=== PATIENT | male | born 1960 | race Caucasian/White ===

== ENCOUNTER 2024-08-24 13:51 | Outpatient (REF) | payer MEDICARE, SELFPAY ==
[2024-08-24 16:32] LABS: Anion Gap 15 (12-20); Blood Urea Nitrogen 13 mg/dL (9-16); Calcium 9.8 mg/dL (8.4-10.2); Carbon Dioxide 25 mmol/L (22-29); Chloride 105 mmol/L (96-108); Cholesterol 179 mg/dL (<200); Estimated Glomerular Filt Rate > 60; Glucose Random 154 mg/dL (60-115); HDL Cholesterol 47 mg/dL (>40); LDL Cholesterol Calculated 82 mg/dL (<100); Potassium 4.9 mmol/L (3.3-5.1); Sodium 140 mmol/L (135-145); Triglycerides 253 mg/dL (<150)
--- OUTSIDE RECORDS SUMMARY | 2024-08-24 16:45 | XMS_ITS | Encounter Summary ---
Author Organization [employer] Address [address] [facility] 7 [place] [address] Care Team Providers Care Lead Security Officer Name Role Phone Davi Rivers MD Primary Care Provide r Reason for Visit * Reason Comments Diabetes Encounter Details Date Type Department Care Team (Late st Contact Info) Description 08/24/2024 1:15 PM EST Office Visit [facility] MED[facility]INE [address], [place] [phone] Davi Rivers MD [address], [place] [phone] IgG4 related disease (CMS/HCC) (Primary Dx); Type 2 diabetes mellitus without complication, without long-term current use of insulin (CMS/HCC); Colon cancer screening; S/P TKR (total knee replacement), left; Primary hypertension; Preventative health care Social History Tobacco Use Types Packs/Day Years Used Date Smoking Tobacco: Never Passive Smoke Exposure: Never Smokeless Tobacco: Never Alcohol Answer Date Recorded How often do you have a drink containing alcohol ? 2 05/23/2024 Average Number of Drinks Not on file 024 Frequency of Binge Drinking Not on file 04/29 Depression Answer Date Recorded Patient Health Questionnaire-9 Score 0 01/18/2024 Patient Health Questionnaire-9 Score 0 01/18/2024 Last PHQ-9: Questionnaire Data Not on file 0 01/18/2024 Housing Stability Answer Date Recorded What is your housing situation today? I have heber naylor 01/18/[address] you li ve. Do you have problems with any of the following? None of the above 01/18/2024 Food Insecurity Answer Date Recorded Within the past 12 months, y ou worried that your food would run out before you got money to buy more: Never True 01/18/2024 Within the past 12 months,th e food you bought just didn't last and you didn't have enough money to get more: Never True Transportation Answer Date Recorded In the past 12 months, has l ack of transportation kept you from medical appts, meetings, work or from getting things needed for daily living? No 01/18/2024 Utilities Answer Date Recorded In the past 12 months, has t he electric, gas, oil or water company threatened to shut off services in your home? No 01/18/2024 Depression Answer Date Recorded Patient Health Questionnaire-2 Score 0 01/18/2024 Internet Access Answer Date Recorded Internet Access Q1 Yes 02/28/2024 Internet Access Q2 Not on file 02/28/2024 Sex and Gender Information Value Date Recorded Sex Assigned at Male 04/27/2022 10:34 AM EDT Legal Sex Male 10:34 AM EDT Gender Identity Male 04/27/2022 10:34 AM EDT Sexual Orientation Straight 04/27/2022 10 :34 AM EDT documented as of this encounter Last Filed Vital Signs Vital Sign Reading Time Taken Comments Blood Pressure 138/91 08/24/2024 1:14 PM EST Pulse 88 08/24/2024 3:39 PM EST Temperature 36.1 ??C (96.9 ??F) 08/24/2024 1:14 PM ES T Respiratory Rate 20 08/24/2024 1:14 PM EST Oxygen Saturation 98% 08/24/2024 1:14 PM EST Inhaled Oxygen Concentration - - Weight 93.8 kg (206 lb 12.8 oz) 08/24/2024 1:14 PM EST Height 185.4 cm (6' 1 ) 08/24/2024 1:14 PM EST Body Mass Index 27.28 08/24/2024 1:14 PM EST documented in this encounter Progress Notes * Davi Navarro MD - 08/24/2024 1:15 PM EST SUBJECTIVE Roque Mata is a 64 y.o. male who presents for Diabetes. Diabetes He presents for his follow-up diabetic visit. He has type 2 diabetes mellitus. Pertinent negatives for hypoglycemia include no headaches. Pertinent negatives for diabetes include no chest pain. Review of Systems Constitutional: Negative for fever. HENT: Negative for sore throat. Respiratory: Negative for cough and shortness of breath. Cardiovascular: Negative for chest pain. Gastrointestinal: Negative for abdominal pain. Neurological: Negative for headaches. Allergies Allergen Reactions Lisinopril Cough OBJECTIVE Vitals: 08/24/24 1314 08/24/24 1539 BP: (!) 138/91 BP Location: Right arm Patient Position: Sitting BP Cuff Size: Adult Pulse: (!) 115 88 Resp: 20 Temp: 96.9 ??F (36.1 ??C) TempSrc: Temporal SpO2: 98% Weight: 206 lb 12.8 oz (93.8 kg) Height: 6' 1 (1.854 m) Physical Exam Vitals reviewed. Constitutional: Appearance: Normal appearance. HENT: Head: Normocephalic and atraumatic. Right Ear: External ear normal. Left Ear: External ear normal. Nose: Nose normal. Mouth/Throat: Mouth: Mucous membranes are moist. Eyes: Conjunctiva/sclera: Conjunctivae normal. Cardiovascular: Rate and Rhythm: Normal rate and regular rhythm. Pulmonary: Effort: Pulmonary effort is normal. Breath sounds: Normal breath sounds. Skin: General: Skin is warm. Neurological: Mental Status: He is alert. Mental status is at baseline. Assessment/Plan Problem List Items Addressed This Visit Type 2 diabetes mellitus without complication ([facility]) Pt here for a f/u regarding his DM he is on a regimen of Metformin 1000 mg 1 tabs po BID and Glipizide ER 10 mg in AM Hgb A1c 08/24/2024: 6.6 Pt is on an ARB Foot check risk of zero Microalbumin 07/15/2021 was 0.4 Pt reports compliance with Asa 81 mg po daily Pt not checking his blood sugar Plan: Continue current regimen Pt advised to: adhere to diabetic diet check your blood sugars regularly check your feet on a daily basis 3 months follow up Relevant Orders POCT Glucose (Completed) POCT HGB A1C (Completed) Albumin, Random Urine W/Creatinine 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 He initially presented with history of painless jaundice and cross-sectional imaging (CT, MRCP) that has been extensively evaluated with cytologic duct brushings at time of ERCP w/ plastic stent placement (08/30/2020), diagnostic laparoscopy with peritoneal washings (09/02/2020) and EUS-guided biopsy (unclear whether FNA vs FNB) (09/25/2020) with no evidence of malignancy. Given a large pancreas without defined mass and relative lack of features and negative malignancy evaluation, this appears suggestive of autoimmune pancreatitis. Given concomitant gallbladder and bile duct thickening, there may be associated cholangiopathy. According to Dr Banda His blood tests and imaging continue to improve on aza and allopurinol. She recommend to assess for active disease with MRCP MRCP done 07/2022 showed: IMPRESSION: 1. 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 2. 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 3. Fatty liver. 4. 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 Pt had a repeat MRCP 09/14/2022 that showed: IMPRESSION: 1. Interval decrease in masslike narrowing of a central right intrahepatic biliary radical within segment 8/5 with less upstream dilatation, likely improved in the setting of steroid therapy. These findings may represent an inflammatory process such IgG4-related cholangiopathy. Cholangiocarcinoma is unlikely given interval improvement in previously visualized biliary dilatation and masslike enhancement. However, to be sure that these findings are benign and resolve, a follow-up MRI/MRCP study in 4-6 weeks is recommended. 2. Fatty liver. 3. Similar mild prominence of the pancreatic tail without discrete mass or inflammatory changes, which may represent sequelae of prior autoimmune pancreatitis. Pt was subsequently referred to Rheumatology ( Dr Lopez ) by Dr Banda He was last seen 04/2023 He is concerned about?IgG4-RD (pancreas, bile ducts, gallbladder). 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 He is now s/p RTX 1,000 mg x2 infusions in January 2023. He is Off prednisone and biliary stent removed in March 2023. Last seen by [employer] Breanne PelaezO. 07/24/2024 He recommended: Monitoring labs every [address]. [address] Castañeda for co-management of IgG4-related EPI. Options for Creon co-pay assistance? -Monitor weight over the next 1-2 months. If continues to decline and IgG4-RD activity not suggestive of activity, will pursue further with imaging. Return to see him in 4-6 weeks. Colon cancer screening Pt tells me he had a colonoscopy at [facility], records requested S/P TKR (total knee replacement), left Pt with c/o moderate to severe left knee pain, knee gives way. Under the care of [facility] . S/P TKR 06/01/2024 Primary hypertension Pt here for a f/u for his HTN BP controlled He is on a regimen of: Irbesartan 150 mg po daily. Pt developed cough with Lisinopril. Most recent Scr 03/27/2024 Normal done at [facility] patient advised to adhere to a low sodium diet, encouraged about medication compliance, counseled about weight loss. f/u 4 months Preventative health care PSA 2018 Normal, ordered Colonoscopy: Hyperplastic Polyp 05/10/2012 Dr. Zurita ( file under Pulmonology consults). Repeat 05/15/2024 Dr Galeano Normal aside from internal hemorrhoids, 10 yr follow up recommended done at [facility] Relevant Orders PSA, Screen documented in this encounter Miscellaneous Notes * Assessment & Plan Note - Davi Navarro MD - 08/24/2024 1:40 PM EST Associated Problem(s): Preventative health care PSA 2018 Normal, ordered Colonoscopy: Hyperplastic Polyp 05/10/2012 Dr. Zurita ( file under Pulmonology consults). Repeat 05/15/2024 Dr Galeano Normal aside from internal hemorrhoids, 10 yr follow up recommended done at [facility] * Assessment & Plan Note - Davi Navarro MD - 08/24/2024 1:39 PM EST Associated Problem(s): Colon cancer screening Pt tells me he had a colonoscopy at [facility], records requested * Assessment & Plan Note - Davi Navarro MD - 08/24/2024 1:30 PM EST Associated Problem(s): Primary hypertension Pt here for a f/u for his HTN BP controlled He is on a regimen of: Irbesartan 150 mg po daily. Pt developed cough with Lisinopril. Most recent Scr 03/27/2024 Normal done at [facility] patient advised to adhere to a low sodium diet, encouraged about medication compliance, counseled about weight loss. f/u 4 months * Assessment & Plan Note - Davi Navarro MD - 08/24/2024 1:30 PM EST Associated Problem(s): Type 2 diabetes mellitus without complication (CMS/HCC) Pt here for a f/u regarding his DM he is on a regimen of Metformin 1000 mg 1 tabs po BID and Glipizide ER 10 mg in AM Hgb A1c 08/24/2024: 6.6 Pt is on an ARB Foot check risk of zero Microalbumin 07/15/2021 was 0.4 Pt reports compliance with Asa 81 mg po daily Pt not checking his blood sugar Plan: Continue current regimen Pt advised to: adhere to diabetic diet check your blood sugars regularly check your feet on a daily basis 3 months follow up * Assessment & Plan Note - Davi Navarro MD - 08/24/2024 1:29 PM EST Associated Problem(s): S/P TKR (total knee replacement), left Pt with c/o moderate to severe left knee pain, knee gives way. Under the care of [facility] . S/P TKR 06/01/2024 * Assessment & Plan Note - Davi Navarro MD - 08/24/2024 1:27 PM EST Associated Problem(s): IgG4 related disease (CMS/HCC) Under the care of Dr Banda Who has been following for pancreas mass w/ associated elevated IgG4. He initially presented with history of painless jaundice and cross-sectional imaging (CT, MRCP) that has been extensively evaluated with cytologic duct brushings at time of ERCP w/ plastic stent placement (08/30/2020), diagnostic laparoscopy with peritoneal washings (09/02/2020) and EUS-guided biopsy (unclear whether FNA vs FNB) (09/25/2020) with no evidence of malignancy. Given a large pancreas without defined mass and relative lack of features and negative malignancy evaluation, this appears suggestive of autoimmune pancreatitis. Given concomitant gallbladder and bile duct thickening, there may be associated cholangiopathy. According to Dr Banda His blood tests and imaging continue to improve on aza and allopurinol. She recommend to assess for active disease with MRCP MRCP done 07/2022 showed: IMPRESSION: 1. 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 2. 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 3. Fatty liver. 4. 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 Pt had a repeat MRCP 09/14/2022 that showed: IMPRESSION: 1. Interval decrease in masslike narrowing of a central right intrahepatic biliary radical within segment 8/5 with less upstream dilatation, likely improved in the setting of steroid therapy. These findings may represent an inflammatory process such IgG4-related cholangiopathy. Cholangiocarcinoma is unlikely given interval improvement in previously visualized biliary dilatation and masslike enhancement. However, to be sure that these findings are benign and resolve, a follow-up MRI/MRCP study in 4-6 weeks is recommended. 2. Fatty liver. 3. Similar mild prominence of the pancreatic tail without discrete mass or inflammatory changes, which may represent sequelae of prior autoimmune pancreatitis. Pt was subsequently referred to Rheumatology ( Dr Lopez ) by Dr Banda He was last seen 04/2023 He is concerned about?IgG4-RD (pancreas, bile ducts, gallbladder). 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 He is now s/p RTX 1,000 mg x2 infusions in January 2023. He is Off prednisone and biliary stent removed in March 2023. Last seen by [employer] Jonathan Pelaez.O. 07/24/2024 He recommended: Monitoring labs every [address] Castañeda for co-management of IgG4-related EPI. Options for Creon co-pay assistance? -Monitor weight over the next 1-2 months. If continues to decline and IgG4-RD activity not suggestive of activity, will pursue further with imaging. Return to see him in 4-6 weeks. documented in this encounter Plan of Treatment Scheduled Orders Name Type Priority Associated Diagnoses Orde r Schedule PSA, Screen Lab Routine Preventative health care Ordered: 08/24/2024 Albumin, Random Urine W/Creatinine Lab Routine Type 2 diabetes mellitus without complication, without long-term current use of insulin (CMS/HCC) Ordered: 08/24/2024 documented as of this encounter Procedures Procedure Name Priority Date/Time Associated Diagnosis Comments POCT GLYCATED HEMOGLOBIN, TOTAL Routine 08/24/2024 1:25 PM EST Type 2 diabetes mellitus without complication, without long-term current use of insulin (CMS/HCC) POCT GLUCOSE Routine 08/24/2024 1:18 PM EST Type 2 diabetes mellitus without complication, without long-term current use of insulin (CMS/HCC) HM COLONOSCOPY Routine 05/15/2024 documented in this encounter Results * (ABNORMAL) POCT HGB A1C (08/24/2024 1:25 PM EST) Hemoglobin A1C 6.6(A) 4.0 - 6.0 % QC Media Lot # [id number] Lot# Expiration Date Blood 08/24/2024 1:25 PM EST Result [facility] Davi Navarro MD POINT OF CARE TEST EN TER/EDIT ORDERABLES Final Result * POCT Glucose (08/24/2024 1:18 PM EST) Glucose Blood, POC 173 60 - 200 mg/dL QC Media Lot # [id number] Lot# Expiration Date Blood Capillary blood specimen / Unknown 08/24/2024 1:18 PM EST Result [facility] Davi Navarro MD POINT OF CARE TEST EN TER/EDIT ORDERABLES Final Result * Hm Colonoscopy (05/15/2024) Colonoscopy Normal Normal 05/15/2024 Result [facility] Rome Velarde MD HEALTH MAINTENANCE Final Result documented in this encounter Visit Diagnoses Diagnosis IgG4 related disease (CMS/HCC)- Primary Type 2 diabetes mellitus without complication, without long-term current use of insulin (CMS/HCC) Colon cancer screening Special screening for malignant neoplasms, colon S/P TKR (total knee replacement), left Primary hypertension Unspecified essential hypertension Preventative health care Routine general medical examination at a health care facility documented in this encounter Additional Health Concerns Assessment Noted Time PHQ-9 Depression Total Score: 0 01/18/20 24 1:09 PM EDT documented as of this encounter Care Teams Lead Security Officer Relationship Specialty Start Date End Date Davi Rivers MD [address] [place] [address] PCP - General Internal Medicine 03/29/18 documented as of this encounter
--- OUTSIDE RECORDS SUMMARY | 2024-08-24 16:45 | XMS_ITS | Encounter Summary ---
Author Organization [employer] Address [address] [facility] [address] [place] [address] Care Team Providers Care Supervisor Byproducts Name Role Phone Davi Rivers MD Primary Care Provide r Reason for Visit * Reason Comments Pre-visit Planning SDOH Screening negat andrew and Tobacco screening negative Encounter Details Date Type Department Care Team ([facility] st Contact Info) Description 08/11/2024 Patient Outreach [facility] MEDICINE [address] [place], [place] [phone] Davi Rivers MD [address] [place], [place] [phone] Pre-visit Planning (SDOH Screening negative and Tobacco screening negative) Social History Tobacco Use Types Packs/Day Years [...] AM EDT documented as of this encounter Progress Notes * Juhi Marsh - 08/11/2024 9:57 AM EST NEGIN Gillespie placed successful outbound call to patient for pre-visit planning. Patient name and confirmed. Patient confirms appt date and time, and has transportation arrangements. Biggest concern for appointment at this time is no concerns. Patient advised to bring to appointment a photo id and insurance card. Appropriate screenings completed in anticipation of appointment. documented in this encounter Plan of Treatment Not on file documented as of this encounter Visit Diagnoses Not on filedocumented in this encounter Additional Health Concerns Assessment Noted Time PHQ-9 Depression Total Score: 0 01/18/20 24 1:09 PM EDT documented as of this encounter Care Teams Supervisor Byproducts Relationship Specialty Start Date End Date aDvi Rivers MD [address] [place] [phone] PCP - General Internal Medicine 03/29/18 documented as of this encounter
--- OUTSIDE RECORDS SUMMARY | 2024-08-24 16:45 | XMS_ITS | Encounter Summary ---
Author Organization [employer] Address [address] [place] [address] 7 [place] [address] Care Team Providers Care Manpower Development Specialist Name Role Phone Davi Rivers MD Primary Care Provide r Reason for Visit * Reason Comments Med Refill Encounter Details Date Type Department Care Team (Late st Contact Info) Description 03/09/2023 Refill [facility] [address] [place], [place] [phone] Shameka Batres FNP Social History Tobacco Use Types Packs/Day Years Used Date Smoking Tobacco: Never Passive Smoke Exposure: Never Smokeless Tobacco: Never Depression Answer Date Recorded Patient Health Questionnaire-9 Score 2 12/01/2022 Depression Answer Date Recorded Patient Health Questionnaire-2 Score 0 12/01/2022 Sex and Gender Information Value Date Recorded Sex Assigned at Male 04/27/2022 10:34 AM EDT Legal Sex Male 10:34 AM EDT Gender Identity Male 04/27/2022 10:34 AM EDT Sexual Orientation Straight 04/27/2022 10 :34 AM EDT documented as of this encounter Plan of Treatment Not on file documented as of this encounter Visit Diagnoses Not on filedocumented in this encounter Additional Health Concerns Assessment Noted Time PHQ-9 Depression Total Score: 2 12/02/19 23 1:03 PM EDT documented as of this encounter Care Teams Manpower Development Specialist Relationship Specialty Start Date End Date Davi Rivers MD [address] [place] [id number] PCP - General Internal Medicine 03/29/18 documented as of this encounter
--- OUTSIDE RECORDS SUMMARY | 2024-08-24 16:45 | XMS_ITS | Encounter Summary ---
Author Organization [employer] Address [address] [facility] [address] [facility] [address] [place] [address] Care Team Providers Care Director Of Radio Services Name Role Phone Davi Rivers MD Primary Care Provide r Encounter Details Date Type Department Care Team ([facility] Contact Info) Description 08/24/2024 Telephone [facility] MEDICINE [address] [place], [place] [phone] Anne Ren, BA Social History Tobacco Use Types Packs/Day Years [...] AM EDT documented as of this encounter Miscellaneous Notes * Telephone Encounter - Anne Ren RN - 08/24/2024 2:50 PM EST Pt was present with pharmacist when team nurse received a phone call. Pharmacist reports pt does not appear well and requesting for team nurse to assess the situation. Pt sitting in wheel chair, appeared lethargic and reports dizziness. Pt states they ate breakfast and checked heir BS which was 180this morning. Pt states they had about three strokes in the past and went to the hospital last week. Pt reports when they were at the hospital they reported they did not find anything wrong. BS was checked at the clinic noted 201, HR: 66 O2: 96. custom car builder presented to ask pt more questions, pt speech incoherent with slight left facial droopiness. Dr. Marks was called and presented to the [facility] r/u possible signs of stroke before their scheduled daphne with their PCP at 1 pm. PCP reports pt is okay and pt was taking to green team to their appt. documented in this encounter Plan of Treatment Scheduled Orders Name Type Priority Associated Diagnoses Orde r Schedule POCT Glucose Point of Care Testing Routine Type 2 diabetes mellitus without complication, without long-term current use of insulin ([facility]) Ordered: 08/24/2024 documented as of this encounter Visit Diagnoses Diagnosis Type 2 diabetes mellitus without complication, without long-term current use of insulin ([facility]) documented in this encounter Additional Health Concerns Assessment Noted Time PHQ-9 Depression Total Score: 0 01/18/20 24 1:09 PM EDT documented as of this encounter Care Teams Director Of Radio Services Relationship Specialty Start Date End Date Davi Rivers MD [address] [place] [address] PCP - General Internal Medicine 03/29/18 documented as of this encounter
--- OUTSIDE RECORDS SUMMARY | 2024-08-24 16:45 | XMS_ITS | Clinical Summary ---
Author Organization [employer] Address [address] [facility] [address] [place] [address] Care Team Providers Care Office Nurse Name Role Phone Davi Rivers MD Primary Care Provide r Allergies Active Allergy Reactions Criticality Noted Date Comments Lisinopril Cough 03/29/2018 Medications allopurinol (Zyloprim) 100 MG tablet Take 100 mg by mouth in the morning. 3 Active fluticasone furoate (Arnuity Ellipta) 200 MCG/ACT inhaler INHALE 1 PUFF BY MOUTH ONCE DAILY. 30 each 3 4 Active albuterol (Ventolin HFA) 108 (90 Base) MCG/ACT inhaler INHALE 2 PUFFS BY MOUTH EVERY 4 TO 6 HOURS IF NEEDED 18 g 3 4 Active irbesartan (Avapro) 150 MG tabletIndications :Primary hypertension TAKE 1 TABLET BY MOUTH EVERY DAY 90 tablet 1 4 Active metFORMIN (Glucophage) 1000 MG tabletIndications :Hypertension associated with diabetes (CMS/HCC) (CMS/HCC),Type 2 diabetes mellitus with other specified complication, without long-term current use of insulin (CMS/HCC) TAKE 1 TABLET BY MOUTH WITH BREAKFAST AND EVENING MEAL 180 tablet 1 5 Active glipiZIDE XL (Glucotrol XL) 10 MG 24 hr tablet TAKE 1 TABLET BY MOUTH EVERY DAY WITH BREAKFAST 90 tablet 5 Active Active Problems Problem Noted Date Diagnosed Date S/P TKR (total knee replacement), left Assessment & Plan (08/24/2024 1:29 PM EST): Pt with c/o moderate to severe left knee pain, knee gives way. Under the care of [facility] . S/P TKR 06/01/2024 Assessment & Plan (05/23/2024 1:35 PM EST): Pt with c/o moderate to severe left knee pain, knee gives way. Under the care of [facility] . Scheduled for a TKR 06/01/2024 Assessment & Plan (01/18/2024 1:19 PM EDT): Pt with c/o moderate to severe left knee pain, knee gives way. Plan: refer to [facility] who evaluated him in the past. Colon cancer screening 06/17/2023 Assessment & Plan (08/24/2024 1:39 PM EST): Pt tells me he had a colonoscopy at [facility], records requested Assessment & Plan (09/21/2023 1:19 PM EDT): Scheduled to see GI 10/18/2023 Assessment & Plan (06/17/2023 2:26 PM EST): Will refer back overdue Preventative health care 12/01/2022 Assessment & Plan (08/24/2024 3:38 PM EST): 2018 Normal, ordered Colonoscopy: Hyperplastic Polyp 05/10/2012 Dr. Zurita ( file under Pulmonology consults). Repeat 05/15/2024 Dr Galeano Normal aside from internal hemorrhoids, 10 yr follow up recommended done at [facility] Assessment & Plan (05/23/2024 1:36 PM EST): 2018 Normal Colonoscopy: Hyperplastic Polyp 05/10/2012 Dr. Zurita ( file under Pulmonology consults). referred back last visit. Records requested Assessment & Plan (06/17/2023 2:25 PM EST): Colonoscopy: Hyperplastic Polyp 05/10/2012 Dr. Zurita ( file under Pulmonology consults). Will refer back Assessment & Plan (12/01/2022 1:05 PM EDT): Colonoscopy: Hyperplastic Polyp 05/10/2012 Dr. 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 Pt asymptomatic, no recent exposure Pt with diabetes and on intermitent prednisone that could weaken his immune system I recommended to repeat the Quantiferon test and obtain a , Chest x-ray. Pt told me he was told by Dr Lopez the Director Of Retail that he was going to do that and that I dod not have to do that. He also tells me Dr Lopez told him he thought this was a false positive. I discussed with patient that it was important that he follow through with this since if he is indeed positive and he will be on immunosuppressants he needs to be evaluated at the TB clinic. Pt is completely symptomatic no cough, no sob, lungs clear to auscultation bilaterally I see that he had an E-Consult by ID Specialist who recommended treatment. He already has an appointment with an ID specialist shceduled prior to his first RTX infusion Assessment & Plan (12/22/2022 3:54 PM EDT): Quantiferon gold done by Dr Banda positive ? Pt asymptomatic, no recent exposure Pt with diabetes and on intermitent prednisone that could weaken his immune system I recommended to repeat the Quantiferon test and obtain a , Chest x-ray. Pt told me he was told by Dr Lopez the Director Of Retail that he was going to do that and that I dod not have to do that. He also tells me Dr Lopez told him he thought this was a false positive. I discussed with patient that it was important that he follow through with this since if he is indeed positive and he will be on immunosuppressants he needs to be evaluated at the TB clinic. Pt is completely symptomatic no cough, no sob, lungs clear to auscultation bilaterally I see that he had an E-Consult by ID Specialist who recommended treatment. He already has an appointment with an ID specialist shceduled prior to his first RTX infusion Assessment & Plan (12/01/2022 1:27 PM EDT): Quantiferon gold done by Dr Banda positive ? Pt asymptomatic, no recent exposure Pt with diabetes and on intermitent prednisone that could weaken his immune system I recommended to repeat the Quantiferon test and obtain a , Chest x-ray. Pt told me he was told by Dr Lopez the Director Of Retail that he was going to do that and that I dod not have to do that. He also tells me Dr Lopez told him he thought this was a false positive. I discussed with patient that it was important that he follow through with this since if he is indeed positive and he will be on immunosuppressants he needs to be evaluated at the TB clinic. 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 in Dr Banda recommended to repeat in 2 months EGD was done 08/25/2020 Biopsies showed NO evidence of Nigel esophagus , GI recommended to repeat in 3 years Type 2 diabetes mellitus without complication Assessment & Plan (08/24/2024 1:30 PM EST): Pt here for a f/u regarding his [...] a daily basis 3 months follow up Assessment & Plan (05/23/2024 1:26 PM EST): Pt here for a f/u regarding his DM he is on a regimen of Metformin 1000 mg 1 tabs po BID and Glipizide ER 10 mg in AM Hgb A1c 05/23/2024: 6.5 Pt is on an ARB Foot check risk of zero Microalbumin 07/15/2021 was 0.4 Pt reports compliance with Asa 81 mg po daily Pt not checking his blood sugar Plan: Continue current regimen Pt advised to: adhere to diabetic diet check your blood sugars regularly check your feet on a daily basis 3 months follow up Assessment & Plan (01/18/2024 1:12 PM EDT): Pt here for a f/u regarding his DM he is on a regimen of Metformin 1000 mg 1 tabs po BID and Glipizide ER 10 mg in AM Hgb A1c 01/04/2024: 6.4 Pt is on an ARB Foot check risk of zero Microalbumin 07/15/2021 was 0.4 Pt reports compliance with Asa 81 mg po daily Pt not checking his blood sugar Plan: Continue current regimen Pt advised to: adhere to diabetic diet check your blood sugars regularly check your feet on a daily basis 3 months follow up Assessment & Plan (09/21/2023 1:16 PM EDT): Pt here for a f/u regarding his DM he is on a regimen of Metformin 1000 mg 1 tabs po BID and Glipizide ER 10 mg in AM Hgb A1c 09/21/2023: 6.6 7.6 down from 9.9 now that he is off the Prednisone Pt is on an ARB Foot check risk of zero Microalbumin 07/15/2021 was 0.4 Pt reports compliance with Asa 81 mg po daily Pt not checking his blood sugar Plan: Continue current regimen Pt advised to: adhere to diabetic diet check your blood sugars regularly check your feet on a daily basis 3 months follow up Assessment & Plan (06/17/2023 2:23 PM EST): Pt here for a f/u regarding his DM he is on a regimen of Metformin 1000 mg 1 tabs po BID and Glipizide ER 10 mg in AM Hgb A1c 06/17/2023: 7.6 down from 9.9 now that he is off the Prednisone Pt is on an ARB Foot check risk of zero Microalbumin 07/15/2021 was 0.4 Pt reports compliance with Asa 81 mg po daily Pt not checking his blood sugar Plan: Continue current regimen Pt advised to: adhere to diabetic diet check your blood sugars regularly check your feet on a daily basis 3 months follow up Assessment & Plan (12/22/2022 3:53 PM EDT): Pt here for a f/u regarding his DM he is on a regimen of Metformin 1000 mg 1 tabs po BID and Glipizide ER 10 mg po daily. Hgb A1c 12/01/2022: 9.9 Pt is on an ARB Foot check risk of zero Microalbumin 07/15/2021 was 0.4 Pt reports compliance with Asa 81 mg po daily Pt not checking his blood sugar A1c elevated likely due to Prednisone Fasting BG over 200 most days Plan: Increase Glipizide XL to 10 mg in Am and 5 mg in PM Pt advised to: adhere to diabetic diet check your blood sugars regularly check your feet on a daily basis 3 months follow up Assessment & Plan (12/01/2022 1:29 PM EDT): Pt here for a f/u regarding his DM he is on a regimen of Metformin 1000 mg 1 tabs po BID and Glipizide ER 10 mg po daily. 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 Last seen by Director Of Retail John Gabriel D.O. 07/24/2024 He recommended: Monitoring labs every [address]. [address] Castañeda for co-management of IgG4-related EPI. Options for Creon co-pay assistance? -Monitor weight over the next 1-2 months. If continues to decline and IgG4-RD activity not suggestive of activity, will pursue further with imaging. Return to see him in 4-6 weeks. Assessment & Plan (09/21/2023 1:06 PM EDT): Under the care of Dr Banda Who [...] removed in March 2023. Last seen by Director Of Retail John Gabriel D.O. 07/2023 He recommended: -MRCP scheduled for October. -Follow up with him and Dr. Banda-Dominique after imaging. -stated patient needs close monitoring to prevent additional biliary and pancreatic damage. Assessment & Plan (06/17/2023 2:15 PM EST): Under the care of Dr Banda Who [...] and biliary stent removed in March 2023. He recommended to Repeat LFTs. And Monitor closely. He Would favor repeat MRCP in early 2023 (4 months after RTX). And to Continue INH course and return to see him in 3 months. Assessment & Plan (12/22/2022 3:29 PM EDT): Under the care of Dr Banda Who [...] Lopez ) by Dr Banda He was seen 11/25/2022 He is concerned about?IgG4-RD (pancreas, bile ducts, gallbladder). 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 He mentioned he would benefit from rituximab treatment. He is pursuing RTX authorization. He recommended to reduce prednisone slightly from 20 to 15 mg daily given hyperglycemia and normalization of LFTs. Taper further after first RTX infusion. Pt is already scheduled for his first infusion on January 01 2023 Assessment & Plan (12/01/2022 1:03 PM EDT): Under the care of Dr Banda Who [...] Lopez ) by Dr Banda He was seen 11/25/2022 He is concerned about?IgG4-RD (pancreas, bile ducts, gallbladder). 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 He mentioned he would benefit from rituximab treatment. He is pursuing RTX authorization. He recommended to reduce prednisone slightly from 20 to 15 mg daily given hyperglycemia and normalization of LFTs. Taper further after first RTX infusion. Return to see him in 3 months. Chronic gout without tophus 11/01/2018 Primary hypertension 03/29/2018 Assessment & Plan (08/24/2024 1:30 PM EST): Pt here for a f/u for his HTN BP controlled He is on a regimen of: Irbesartan 150 mg po daily. Pt developed cough with Lisinopril. Most recent Scr 03/27/2024 Normal done [place] [facility] patient advised to adhere to a low sodium diet, encouraged about medication compliance, counseled about weight loss. f/u 4 months Assessment & Plan (05/23/2024 1:25 PM EST): Pt here for a f/u for his HTN BP controlled He is on a regimen of: Irbesartan 150 mg po daily. Pt developed cough with Lisinopril. Most recent Scr 03/27/2024 Normal done at [facility] [place] patient advised to adhere to a low sodium diet, encouraged about medication compliance, counseled about weight loss. f/u 4 months Assessment & Plan (01/18/2024 1:11 PM EDT): Pt here for a f/u for his HTN controlled He is on a regimen of: Irbesartan 150 mg po daily. Pt apparently developed cough with Lisinopril. Most recent BMP 09/2023 Normal done at [facility] [place] patient advised to adhere to a low sodium diet, encouraged about medication compliance, counseled about weight loss. f/u 4 months Assessment & Plan (09/21/2023 1:03 PM EDT): Pt here for a f/u for his HTN controlled He is on a regimen of: Irbesartan 150 mg po daily. Pt apparently developed cough with Lisinopril. Most recent BMP 02/01/2023 Normal patient advised to adhere to a low sodium diet, encouraged about medication compliance, counseled about weight loss. f/u 4 months Assessment & Plan (06/17/2023 2:16 PM EST): Pt here for a f/u for his HTN controlled He is on a regimen of: Irbesartan 150 mg po daily. Pt apparently developed cough with Lisinopril. Most recent BMP 02/01/2023 [facility] patient advised to adhere to a low sodium diet, encouraged about medication compliance, counseled about weight loss. f/u 4 months Assessment & Plan (12/22/2022 3:22 PM EDT): Pt here for a f/u for his HTN controlled He is on a regimen of: Irbesartan 150 mg po daily. Pt apparently developed cough with Lisinopril. Most recent BMP 07/15/2021 Normal, declines blood work states he will have it done by Rheumatology patient advised to adhere to a low sodium diet, encouraged about medication compliance, counseled about weight loss. f/u 4 months Assessment & Plan (12/01/2022 1:28 PM EDT): Pt here for a f/u for his HTN elevated He is on a regimen of: Irbesartan 150 mg po daily. Pt apparently developed cough with Lisinopril. Most recent BMP 07/15/2021 Normal, declines blood work states he will have it done by Rheumatology I have asked him to start checking his blood pressure at home once a day 2 week follow up if persistently elevated will need to consider adding Amlodipine 2.5 mg po daily patient advised to adhere to a low sodium diet, encouraged about medication compliance, counseled about weight loss. f/u 4 months Mild persistent asthma without complication 07/2017 Assessment & Plan (09/21/2023 1:20 PM EDT): [place] [facility] [place] Pt on Arnuity Ellipta and Pro-Air with good results Assessment & Plan (12/01/2022 1:04 PM EDT): [place] [facility] [place] Pt on Flovent and Pro-Air with good results Resolved Problems Problem Noted Date Diagnosed Date Resolved Date Impaired glucose tolerance 03/29/2018 0 12/01/2022 Encounters Date Type Department Care Team Description 08/24/2024 1:15 PM EST Office Visit [facility] [address] [place] [phone] Davi Rivers MD IgG4 related disease (CMS/HCC) (Primary Dx); Type 2 diabetes mellitus without complication, without long-term current use of insulin (CMS/HCC); Colon cancer screening; S/P TKR (total knee replacement), left; Primary hypertension; Preventative health care 08/24/2024 Telephone [facility] [address] [place] [address] Anne Ren RN 08/24/2024 Travel 08/11/2024 Patient Outreach [facility] [address] [place] [phone] Davi Rivers MD Pre-visit Planning (SDOH Screening negative and Tobacco screening negative) 08/09/2024 Telephone [facility] [address] [place] [phone] Davi Rivers MD Chart Prep 07/12/2024 Refill [facility] [address] [place] [phone] Patt Tamez MD 06/29/2024 Refill [facility] [address] [place] [phone] Davi Rivers MD Hypertension associated with diabetes (CMS/HCC) (CMS/HCC); Type 2 diabetes mellitus with other specified complication, without long-term current use of insulin (CMS/HCC) 06/13/2024 Telephone [facility] [address] [place] [phone] Nydia Mccann MA Feb Recall 05/30/2024 Telephone [facility] [address] [place] [phone] Davi Rivers MD from Last 3 Months Immunizations Name Administration Dates Next Due DTaP 07/20/2011 Tdap 01/18/2024 Zoster, live 07/31/2013 Social History Tobacco Use Types Packs/Day Years Used Date Smoking Tobacco: Never Passive Smoke Exposure: Never Smokeless Tobacco: Never Tobacco Cessation:Counseling Given: Not Answered Alcohol Answer Date Recorded How often do [...] Orientation Straight 04/27/2022 10 :34 AM EDT Last Filed Vital Signs Vital Sign Reading [...] Mass Index 27.28 08/24/2024 1:14 PM EST Plan of Treatment Health Maintenance Due Date Last Done Comments CT Colonography 1961 FIT DNA/Cologuard 1961 FIT 1961 FOBT 1961 HIV Screening 1961 Sigmoidoscopy 1961 Diabetes: Foot Exam 1971 Eye Exam 1971 Pneumococcal Vaccine: 50+ Years (1 of 2 - PCV) 1980 Zoster Vaccines (2 of 3) 09/25/2013 07/31/2013 RSV Patients and Patients Aged 60 years or older (1 - Risk 60-74 years 1-dose series) 2021 Diabetes: Urine Protein Screening 07/15/2022 07/15/2021, 04/17/2020 Lipid Panel 07/15/2022 08/24/2024, 06/28, 04/17/2020 COVID-19 Vaccine (2 - season) 2024 10/05/2020 Influenza Vaccine (#1) 2024 Depression Screening 01/17/2025 01/18/2024, 01/18/20 24 Diabetes: Hemoglobin A1C 02/21/2025 025, 05/23/2024, 01/18/2024, Additional history exists Alcohol/Substance Use Screening 05/23/2025 05/23/2024 SDOH Screening 08/11/2025 08/11/2024 Tobacco Screening 08/24/2025 08/24/2024 DTaP/Tdap/Td Vaccines (3 - Td or Tdap) 01/17/2034 01/18/2024, 07/20/2011 Colonoscopy 05/15/2034 05/15/2024 Colorectal Cancer Screening 05/15/2034 Hepatitis C Screening Completed 08/19/2020 HIB Vaccines Aged Out No longer eligi ble based on patient's age to complete this topic HPV Vaccines Aged Out No longer eligi ble based on patient's age to complete this topic Hepatitis A Vaccines Aged Out No long er eligible based on patient's age to complete this topic Hepatitis B Vaccines Aged Out No long er eligible based on patient's age to complete this topic IPV Vaccines Aged Out No longer eligi ble based on patient's age to complete this topic Meningococcal Vaccine Aged Out No juju adan eligible based on patient's age to complete this topic RSV under 20 months Aged Out No longe r eligible based on patient's age to complete this topic Rotavirus Vaccines Aged Out No longer eligible based on patient's age to complete this topic Procedures Procedure Name Priority Date/Time Associated Diagnosis Comments BASIC METABOLIC PANEL Routine 08/24/2024 1:54 PM EST Primary hypertension LIPID PANEL WITH REFLEX TO DIRECT LDL Routine 08/24/2024 1:54 PM EST Primary hypertension POCT GLYCATED HEMOGLOBIN, TOTAL Routine 08/24/2024 1:25 PM EST Type 2 diabetes mellitus without complication, without long-term current use of insulin (CMS/HCC) POCT GLUCOSE Routine 08/24/2024 1:18 PM EST Type 2 diabetes mellitus without complication, without long-term current use of insulin (CMS/HCC) HM COLONOSCOPY Routine 05/15/2024 ALBUMIN, RANDOM URINE W/CREATININE Routine 07/15/2021 1:31 PM EST ZZZ HISTORICAL HEPATITIS C AB W/REFL TO HCV RNA, QN, PCR Routine 08/19/2020 3:15 PM EST from Last 3 Months or Most Recently Relevant to Health Maintenance Results * (ABNORMAL) POCT HGB A1C (08/24/2024 1:25 PM EST) Hemoglobin A1C 6.6(A) 4.0 - 6.0 % QC Media Lot # [id number] Lot# Expiration Date Blood 08/24/2024 1:25 PM EST us Davi Navarro MD POINT OF CARE TEST EN TER/EDIT ORDERABLES Final Result * POCT Glucose (08/24/2024 1:18 PM EST) Glucose Blood, POC 173 60 - 200 mg/dL QC Media Lot # [id number] Lot# Expiration Date Blood Capillary blood specimen / Unknown 08/24/2024 1:18 PM EST us Davi Navarro MD POINT OF CARE TEST EN TER/EDIT ORDERABLES Final Result * Hm Colonoscopy (05/15/2024) Pathologist [facility] Colonoscopy Normal Normal 05/15/2024 Historical Provider HEALTH MAINTENANCE Final Result * ALBUMIN, RANDOM URINE W/CREATININE (07/15/2021 1:31 PM EST) Pathologist [facility] Microalbumin Urine 0.4 See Note: mg/dL [facility] Comment: Reference Range: ?? Reference Range Not established Microalb/Creat Ratio 2 <30 mcg/mg creat [facility] Comment: ?? The ADA defines abnormalities in albumin excretion as follows: ?? Albuminuria Category ?Result (mcg/mg creatinine) ?? Normal to Mildly increased ?? <30 Moderately increased ? 30-299 ?? Severely increased ? > OR = 300 ?? The ADA recommends that at least two of three specimens collected within a 3-6 month period be abnormal before considering a patient to be within a diagnostic category. Creatinine, Urine 169 20 - 320 mg/dL [facility] 07/15/2021 1:31 PM EST Davi Navarro MD LAB URINE ORDERABLES Final Result [facility] [address] * HEPATITIS C AB W/REFL TO HCV RNA, QN, PCR (08/19/2020 3:15 PM EST) Pathologist [facility] HEPATITIS C ANTIBODY NON-REACT RODRIGO NON-REACT RODRIGO [facility] INDEX 0.02 <1.00 [facility] Comment: ?? HCV antibody was non-reactive. There is no laboratory ?? evidence of HCV infection. ?? In most cases, no further action is required. However, if recent HCV exposure is suspected, a test for HCV RNA (test code 16627) is suggested. ?? For additional information please refer to http://education.Provender/faq/HZI88d5 (This link is being provided for informational/ educational purposes only.) ?? 08/19/2020 3:15 PM EST us Davi Navarro MD HISTORICAL/NON ORDERA BLE LABS Final Result [facility] [address] from Last 3 Months or Most Recently Relevant to Health Maintenance [place] [address] [place] [address] [place] [phone] Care Teams Office Nurse Relationship Specialty Start Date End Date Davi Rivers MD [address] [place] [phone] PCP - General Internal Medicine 03/29/18
--- OUTSIDE RECORDS SUMMARY | 2024-08-24 16:45 | XMS_ITS | Clinical Summary ---
Author Organization [facility] Address [address] [place] [address] Care Team Providers Care Brine Process Operator Name Role Phone Unavailable Primary Care Provider Unavailabl e Social History Tobacco Use Types Packs/Day Years Used Date Smoking Tobacco: Never Assessed Sex and Gender Information Value Date Recorded Sex Assigned at Not on file Gender Identity Not on file Sexual Orientation Not on file Plan of Treatment Health Maintenance Due Date Last Done Comments Hepatitis C Virus Screening 1961 HIV Screening 1974 DTaP/Tdap/Td Vaccines (1 - Tdap) 1980 Pneumococcal Vaccines 50+ (1 of 1 - PCV) 2011 Zoster (Shingles) Vaccine (1 of 2) 2011 COVID-19 Vaccine ( - 2023-2 5 season) 2024 RSV Vaccine 60 years and old er and Patients (1 - 1-dose 75+ series) 2036 Hepatitis B Vaccines Aged Out No long er eligible based on patient's age to complete this topic Pneumococcal Vaccine: Pediat ronald (0-5 Years) and At-Risk Patients (6 to 49 Years) Aged Out No longer eligible b ased on patient's age to complete this topic
--- OUTSIDE RECORDS SUMMARY | 2024-08-24 16:45 | XMS_ITS | Encounter Summary ---
Author Organization [employer] Address [address] [facility] 7 [place] [address] Care Team Providers Care Unpaid Intern Name Role Phone Davi Rivers MD Primary Care Provide r Reason for Visit * Reason Onset Date Comments Chart Prep 08/09/2024 Encounter Details Date Type Department Care Team ([facility] st Contact Info) Description 08/09/2024 Telephone [facility] MEDICINE [address] [place], [place] [phone] Davi Rivers MD [address] [place], [place] [phone] Chart Prep Social History Tobacco Use Types Packs/Day Years [...] the past 12 months, has t he [employer], gas, oil or water company threatened to [...] encounter Miscellaneous Notes * Telephone Encounter - Areli Leigh MA - 08/09/2024 6:08 PM EST Chart Prep Labs: not applicable Images: not applicable Vaccines due: Covid Due, PCV20 Due, Flu Due, RSV in Pharmacy Due, and Shingles in pharmacy Due Referrals: Not Applicable Screenings: Colonoscopy , Eye Exam, Foot Exam, and HIV screening Overdue care gaps: A1C, Glucose, and Oral Health Chart prep for upcoming appt with Dr.Esparza reddy. LB documented in this encounter Plan of Treatment Not on file documented as of this encounter Visit Diagnoses Not on filedocumented in this encounter Additional Health Concerns Assessment Noted Time PHQ-9 Depression Total Score: 0 01/18/20 24 1:09 PM EDT documented as of this encounter Care Teams Unpaid Intern Relationship Specialty Start Date End Date Davi Rivers MD [address] [place] [phone] PCP - General Internal Medicine 03/29/18 documented as of this encounter
--- OUTSIDE RECORDS SUMMARY | 2024-08-24 16:45 | XMS_ITS | Encounter Summary ---
Author Organization [employer] Address [address] [facility] [address] 7[address] [place] [address] Care Team Providers Care Extrusion Manager Name Role Phone Davi Rivers MD Primary Care Provide r Encounter Details Date Type Department Care Team (Latest Contact Info) Description 08/24/2024 Travel Social History Tobacco Use Types Packs/Day Years [...] documented as of this encounter Care Teams Extrusion Manager Relationship Specialty Start Date End Date Davi Rivers MD [address] [place] [address] PCP - General Internal Medicine 03/29/18 documented as of this encounter
--- OUTSIDE RECORDS SUMMARY | 2024-08-24 16:45 | XMS_ITS | Encounter Summary ---
Author Organization [facility] Address [address] [place] [address] Care Team Providers Care Floorperson Name Role Phone Unavailable Primary Care Provider Unavailabl e Encounter Details Date Type Department Care Team (Late st Contact Info) Description 04/30/2015 Scanned Document [address] [phone] Provider, Generic Social History Tobacco Use Types Packs/Day Years Used Date Smoking Tobacco: Never Assessed Sex and Gender Information Value Date Recorded Sex Assigned at Not on file Gender Identity Not on file Sexual Orientation Not on file documented as of this encounter Plan of Treatment Not on file documented as of this encounter Visit Diagnoses Not on filedocumented in this encounter
[2024-08-24 17:04] LABS: Reflex LDLD? No
[2024-08-24 17:08] LABS: Prostate Specific Antigen Scr 0.25 ng/mL (<0.05-4.0)
[2024-08-24 17:12] LABS: Creatinine Urine 365.64 mg/dL; Microalbum/Creatinine Ratio Ur 6.2 ug/mg cr (<30)
== END 2024-08-24 13:52 | disposition home or self-care (01) ==
LOC: HO.HHCL 13:51
PROVIDERS: Visit Provider Internal Medicine
DX: Z00.00 Encounter for general adult medical examination without abnormal findings (principal); E11.9 Type 2 diabetes mellitus without complications; I10 Essential (primary) hypertension; Z12.5 Encounter for screening for malignant neoplasm of prostate
CPT/HCPCS: 36415; 80048; 80061; 82043; 82570; 84153

== ENCOUNTER 2025-03-15 14:56 | Outpatient (REF) | payer MEDICARE, BC, SELFPAY ==
--- NOTE | ~2025-03-15 | XR_ITS ---
EXAMINATION: XR WRIST, RIGHT CLINICAL INFORMATION: bilateral wrist pain ritu decreased ROM COMPARISON: None available. TECHNIQUE: PA, lateral, and oblique views of the right wrist. FINDINGS: There is mild asymmetric narrowing of the radioscaphoid joint space. There is mild subchondral sclerosis. There is moderate severe narrowing of an subchondral sclerosis involving the capital lunate joint. There is moderate narrowing and marginal osteophyte involving first carpal metacarpal joint. There is a bony spur on the dorsum of the proximal wrist on the lateral view. No fractures are identified. XR/XR wrist RT min 3V IMPRESSION: Moderate degenerative disease. 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 Possible remote triquetral dorsal avulsion fracture. Electronically signed by: Erik Franz MD 03/15/2025 03:54 PM EDT
--- NOTE | ~2025-03-15 | XR_ITS ---
EXAMINATION: XR WRIST, LEFT CLINICAL INFORMATION: bilateral wrist pain COMPARISON: None available. TECHNIQUE: PA, lateral, and oblique views of the left wrist. FINDINGS: There is scalloping of the scaphoid fossa in the distal radius. There is narrowing and sclerosis of the capitate lunate articulation. There is mild sclerosis of the STT joint. There is narrowing and sclerosis of the first carpal metacarpal joint. There is focal calcific density between the ulnar styloid and triquetrum. There is faint chondrocalcinosis on the radial side of the STT joint. No acute fracture is identified. 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 Electronically signed by: Erik Franz MD 03/15/2025 03:51 PM EDT
--- OUTSIDE RECORDS SUMMARY | 2025-03-15 14:15 | XMS_ITS | Encounter Summary ---
Author Organization [employer] Address [address] [place] [address] 7t [place] [address] Care Team Providers Care Telephonic Rn Name Role Phone Davi Rivers MD Primary Care Provide r Encounter Details Date Type Department Care Team (Late st Contact Info) Description 03/15/2025 2:15 PM EDT Office Visit [facility] MEDICINE [address] [place], [place] [phone] Davi Rivers MD [address] [place] [address] Type 2 diabetes mellitus without complication, without long-term current use of insulin ([facility]) (Primary Dx); Primary hypertension; Bilateral wrist pain Social History Tobacco Use Types Packs/Day Years Used Date Smoking Tobacco: Never Passive Smoke Exposure: Never Smokeless Tobacco: Never Alcohol Answer Date Recorded How often do you have a drink containing alcohol ? 2 05/23/2024 Average Number of Drinks Not on file 024 Frequency of Binge Drinking Not on file 04/29 Depression Answer Date Recorded Patient Health Questionnaire-9 Score 0 03/15/2025 Patient Health Questionnaire-9 Score 0 03/15/2025 Last PHQ-9: Questionnaire Data Not on file 0 03/15/2025 Housing Stability Answer Date Recorded What is [...] Date Recorded Patient Health Questionnaire-2 Score 0 03/15/2025 Internet Access Answer Date Recorded Internet Access [...] Sign Reading Time Taken Comments Blood Pressure 150/80 03/15/2025 2:26 PM EDT Pulse 102 03/15/2025 2:26 PM EDT Temperature 36.7 C (98.1 F) 03/15/2025 2:26 PM EDT Respiratory Rate 20 03/15/2025 2:26 PM EDT Oxygen Saturation 98% 03/15/2025 2:26 PM EDT Inhaled Oxygen Concentration - - Weight 96.7 kg (213 lb 3.2 oz) 03/15/2025 2:26 P M EDT Height 185.9 cm (6' 1.2 ) 03/15/2025 2:26 PM EDT Body Mass Index 27.97 03/15/2025 2:26 PM EDT documented in this encounter Functional Status * Over the past 2 weeks, how often have you been bothered by any of the following problems? Question Answer Date of Assessment Author Patient Health Questionnaire -2 Score 0 03/15/2025 2:27 PM EDT Jillian Medina MA * Little interest or pleasure in doing things Answer Date of Assessment Author Not at all 03/15/2025 2:27 PM EDT Jillian Medina MA * Feeling down, depressed, or hopeless Answer Date of Assessment Author Not at all 03/15/2025 2:27 PM EDT Jillian Medina MA * Trouble falling or staying asleep, or sleeping too much Answer Date of Assessment Author Not at all 03/15/2025 2:27 PM EDT Jillian Medina MA * Feeling tired or having little energy Answer Date of Assessment Author Not at all 03/15/2025 2:27 PM EDT Jillian Medina MA * Poor appetite or overeating Answer Date of Assessment Author Not at all 03/15/2025 2:27 PM EDT Jillian Medina MA * Feeling bad about yourself - or that you are a failure or have let yourself or your family down Answer Date of Assessment Author Not at all 03/15/2025 2:27 PM EDT Jillian Medina MA * Trouble concentrating on things, such as reading the newspaper or watching television Answer Date of Assessment Author Not at all 03/15/2025 2:27 PM EDT Jillian Medina MA * Moving or speaking so slowly that other people could have noticed? Or the opposite - being so fidgety or restless that you have been moving around a lot more than usual. Answer Date of Assessment Author Not at all 03/15/2025 2:27 PM EDT Jillian Medina MA * Thoughts that you would be better off or hurting yourself in some way Answer Date of Assessment Author Not at all 03/15/2025 2:27 PM EDT Jillian Medina MA * Patient Health Questionnaire-9 Score Answer Date of Assessment Author 0 03/15/2025 2:27 PM EDT Jillian Medina MA documented as of this encounter Progress Notes * Davi Navarro MD - 03/15/2025 2:15 PM EDT SUBJECTIVE Roque Mata is a 64 y.o. male who presents for No chief complaint on file.. 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 He has type 2 diabetes mellitus. Pertinent negatives for hypoglycemia include no headaches. Pertinent negatives for diabetes include no chest pain. Review of Systems Constitutional: Negative for fever. HENT: Negative for sore throat. Respiratory: Negative for cough and shortness of breath. Cardiovascular: Negative for chest pain. Gastrointestinal: Negative for abdominal pain. Neurological: Negative for headaches. Allergies[1] OBJECTIVE Vitals: 03/15/25 1426 BP: (!) 150/80 BP Location: Left arm Patient Position: Sitting BP Cuff Size: Adult Pulse: 102 Resp: 20 Temp: 98.1 ??F (36.7 ??C) TempSrc: Oral SpO2: 98% Weight: 213 lb 3.2 oz (96.7 kg) Height: 6' 1.2 (1.859 m) Physical Exam Vitals reviewed. Constitutional: Appearance: Normal appearance. HENT: Head: Normocephalic and atraumatic. Right Ear: External ear normal. Left Ear: External ear normal. Nose: Nose normal. Mouth/Throat: Mouth: Mucous membranes are moist. Eyes: Conjunctiva/sclera: Conjunctivae normal. Cardiovascular: Rate and Rhythm: Normal rate and regular rhythm. Pulmonary: Effort: Pulmonary effort is normal. Breath sounds: Normal breath sounds. Musculoskeletal: Right wrist: Bony tenderness present. Decreased range of motion. Left wrist: Bony tenderness present. Decreased range of motion. Skin: General: Skin is warm. Neurological: Mental Status: He is alert. Mental status is at baseline. Assessment/Plan Problem List Items Addressed This Visit Type 2 diabetes mellitus without complication (CMS/HCC) - Primary Pt here for a f/u regarding his DM he is on a regimen of Metformin 1000 mg 1 tabs po BID and Glipizide ER 10 mg in AM Hgb A1c 03/15/2025: 7 from 6 Pt is on an ARB Foot check risk of zero Microalbumin 08/24/2024 was 23 Pt reports compliance with Asa 81 mg po daily Pt not checking his blood sugar Plan: Continue current regimen for now, asked patient to check BG at home (he is not doing it ), pending those results will decide if we need to adjust his regimen Pt advised to: adhere to diabetic diet check your blood sugars regularly check your feet on a daily basis 3 months follow up Relevant Orders POCT Glucose (Completed) POCT Hgb A1c (Completed) Primary hypertension Pt here for a f/u for his HTN BP elevated He is on a regimen of: Irbesartan 150 mg po daily. Pt developed cough with Lisinopril. Most recent Scr 11/21/2024 Normal done at [facility] patient advised to adhere to a low sodium diet, encouraged about medication compliance, counseled about weight loss. f/u 4 months with me 2 weeks with RN for BP check Bilateral wrist pain Bilateral wrist pain On exam decreased ROM Suspect OA Plan: x-rays both wrists Relevant Orders XR Hand 3+ Views Right XR Wrist 3+ Views Left This note was drafted using Ambient (AI) technology. The patient/patient's guardian has been informed and has consented to the use of this technology: Yes No future appointments. [1] Allergies Allergen Reactions Lisinopril Cough documented in this encounter Miscellaneous Notes * Assessment & Plan Note - Davi Navarro MD - 03/15/2025 2:47 PM EDT Associated Problem(s): Bilateral wrist pain Bilateral wrist pain On exam decreased ROM Suspect OA Plan: x-rays both wrists * Assessment & Plan Note - Davi Navarro MD - 03/15/2025 2:36 PM EDT Associated Problem(s): Primary hypertension Pt here for a f/u for his HTN BP elevated He is on a regimen of: Irbesartan 150 mg po daily. Pt developed cough with Lisinopril. Most recent Scr 11/21/2024 Normal done at [facility] patient advised to adhere to a low sodium diet, encouraged about medication compliance, counseled about weight loss. f/u 4 months with me 2 weeks with RN for BP check * Assessment & Plan Note - Davi Navarro MD - 03/15/2025 2:36 PM EDT Associated Problem(s): Type 2 diabetes mellitus without complication (CMS/HCC) Pt here for a f/u regarding his DM he is on a regimen of Metformin 1000 mg 1 tabs po BID and Glipizide ER 10 mg in AM Hgb A1c 03/15/2025: 7 from 6 Pt is on an ARB Foot check risk of zero Microalbumin 08/24/2024 was 23 Pt reports compliance with Asa 81 mg po daily Pt not checking his blood sugar Plan: Continue current regimen for now, asked patient to check BG at home (he is not doing it ), pending those results will decide if we need to adjust his regimen Pt advised to: adhere to diabetic diet check your blood sugars regularly check your feet on a daily basis 3 months follow up documented in this encounter Plan of Treatment Not on file documented as of this encounter Procedures Procedure Name Priority Date/Time Associated Diagnosis Comments XR WRIST 3+ VIEWS LEFT Routine 03/15/2025 3:40 PM EDT Bilateral wrist pain XR WRIST 3+ VIEWS RIGHT Routine 03/15/2025 3:27 PM EDT POCT GLYCATED HEMOGLOBIN, TOTAL Routine 03/15/2025 2:50 PM EDT Type 2 diabetes mellitus without complication, without long-term current use of insulin ([facility]) POCT GLUCOSE Routine 03/15/2025 2:25 PM EDT Type 2 diabetes mellitus without complication, without long-term current use of insulin ([facility]) documented in this encounter Results * XR Wrist 3+ Views Left (03/15/2025 3:40 PM EDT) Anatomical Region Laterality Modality Upper Extremities, Wrist Left Radiogr aphic Imaging 03/15/2025 3:40 PM EDT Narrative 03/15/2025 3:54 PM EDT [address] [address] XRay Report Signed Patient: Roque Mata MR#: [id number] : 1960 Acct:[id number] Age/Sex: 64 / M ADM Date: 03/15/25 Loc: HO.HHCX Attending Dr: Davi Rojas MD Ordering Physician: Davi Rojas MD Date of Service: 03/15/25 Procedure(s): XR wrist LT min 3V Accession Number(s): [id number] cc: Davi Rojas MD Reason for Exam: bilateral wrist pain EXAMINATION: XR WRIST, LEFT CLINICAL INFORMATION: bilateral wrist pain COMPARISON: None available. TECHNIQUE: PA, lateral, and oblique views of the left wrist. FINDINGS: There is scalloping of the scaphoid fossa in the distal radius. There is narrowing and sclerosis of the capitate lunate articulation. There is mild sclerosis of the STT joint. There is narrowing and sclerosis of the first carpal metacarpal joint. There is focal calcific density between the ulnar styloid and triquetrum. There is faint chondrocalcinosis on the radial side of the STT joint. No acute fracture is identified. 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 Electronically signed by: Erik Franz MD 03/15/2025 03:51 PM EDT RP Dictated By: Erik Franz MD Signed By: <Electronically signed by Erik Franz MD in OV> 03/15/25 1551 DD/ 1540 TD/TT: 03/15/25 154 Advertising Traffic Manager: Procedure Note Donotmargaritainterpreter, Image - 03/15/[address] [address] XRay Report Signed Patient: Roque Mata LMR#: [id number] : 1960cct:[id number] Age/Sex: 64 / MADM Date: 03/15/25 Loc: HO.HHCX Attending Dr: Davi Rojas MD Ordering Physician: Davi Rojas MD Date of Service: 03/15/25 Procedure(s): XR wrist LT min 3V Accession Number(s): [id number] cc: Davi Rojas MD Reason for Exam: bilateral wrist pain EXAMINATION: XR WRIST, LEFT CLINICAL INFORMATION: bilateral wrist pain COMPARISON: None available. TECHNIQUE: PA, lateral, and oblique views of the left wrist. FINDINGS: There is scalloping of the scaphoid fossa in the distal radius. There is narrowing and sclerosis of the capitate lunate articulation. There is mild sclerosis of the STT joint. There is narrowing and sclerosis of the first carpal metacarpal joint. There is focal calcific density between the ulnar styloid and triquetrum. There is faint chondrocalcinosis on the radial side of the STT joint. No acute fracture is identified. 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 Electronically signed by: Erik Franz MD 03/15/2025 03:51 PM EDT RP Dictated By: Erik Franz MD Signed By: <Electronically signed by Erik Franz MD in OV> 03/15/25 1551 DD/ 1540 TD/TT: 03/15/25 1543 Advertising Traffic Manager: us Davi Navarro MD IMG XR PROCEDURES Fin al Result * XR Wrist 3+ Views Right (03/15/2025 3:27 PM EDT) Anatomical Region Laterality Modality Upper Extremities, Wrist Right Radiogr aphic Imaging 03/15/2025 3:27 PM EDT Narrative 03/15/2025 3:57 PM EDT [facility] [address] [place] [address] XRay Report Signed Patient: Roque Mata MR#: [id number] : 1960 Acct:[id number] Age/Sex: 64 / M ADM Date: 03/15/25 Loc: HO.HHCX Attending Dr: Davi Rojas MD Ordering Physician: Davi Rojas MD Date of Service: 03/15/25 Procedure(s): XR wrist RT min 3V Accession Number(s): [id number] cc: Davi Rojas MD Reason for Exam: bilateral wrist pain ritu decreased ROM EXAMINATION: XR WRIST, RIGHT CLINICAL INFORMATION: bilateral wrist pain ritu decreased ROM COMPARISON: None available. TECHNIQUE: PA, lateral, and oblique views of the right wrist. FINDINGS: There is mild asymmetric narrowing of the radioscaphoid joint space. There is mild subchondral sclerosis. There is moderate severe narrowing of an subchondral sclerosis involving the capital lunate joint. There is moderate narrowing and marginal osteophyte involving first carpal metacarpal joint. There is a bony spur on the dorsum of the proximal wrist on the lateral view. No fractures are identified. XR/XR wrist RT min 3V IMPRESSION: Moderate degenerative disease. 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 Possible remote triquetral dorsal avulsion fracture. Electronically signed by: Erik Franz MD 03/15/2025 03:54 PM EDT Dictated By: Erik Franz MD Signed By: <Electronically signed by Erik Franz MD in OV> 03/15/25 1554 DD/ 1527 TD/TT: 03/15/25 1543 Advertising Traffic Manager: Procedure Note Donotuseinterpreter, Image - 03/15/[address] [address] XRay Report Signed Patient: Roque Mata LMR#: [id number] : 1960cct:[id number] Age/Sex: 64 / MADM Date: 03/15/25 Loc: HO.HHCX Attending Dr: Davi Rojas MD Ordering Physician: Davi Rojas MD Date of Service: 03/15/25 Procedure(s): XR wrist RT min 3V Accession Number(s): [id number] cc: Davi Rojas MD Reason for Exam: bilateral wrist pain ritu decreased ROM EXAMINATION: XR WRIST, RIGHT CLINICAL INFORMATION: bilateral wrist pain ritu decreased ROM COMPARISON: None available. TECHNIQUE: PA, lateral, and oblique views of the right wrist. FINDINGS: There is mild asymmetric narrowing of the radioscaphoid joint space. There is mild subchondral sclerosis. There is moderate severe narrowing of an subchondral sclerosis involving the capital lunate joint. There is moderate narrowing and marginal osteophyte involving first carpal metacarpal joint. There is a bony spur on the dorsum of the proximal wrist on the lateral view. No fractures are identified. XR/XR wrist RT min 3V IMPRESSION: Moderate degenerative disease. 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 Possible remote triquetral dorsal avulsion fracture. Electronically signed by: Erik Franz MD 03/15/2025 03:54 PM EDT Dictated By: Erik Franz MD Signed By: <Electronically signed by Erik Franz MD in OV> 03/15/25 1554 DD/ 1527 TD/TT: 03/15/25 1543 Advertising Traffic Manager: Davi Navarro MD IMG XR PROCEDURES Fin al Result * (ABNORMAL) POCT Hgb A1c (03/15/2025 2:50 PM EDT) Hemoglobin A1C 7.0(A) 4.0 - 5.7 % QC Media Lot # [id number] Lot# Expiration Date , Blood 03/15/2025 2:50 PM EDT Davi Navarro MD POINT OF CARE TEST EN TER/EDIT ORDERABLES Final Result * POCT Glucose (03/15/2025 2:25 PM EDT) Glucose Blood, POC 190 60 - 200 mg/dL QC Media Lot # [id number] Lot# Expiration Date 466,090 Blood Capillary blood specimen / Unknown 03/15/2025 2:25 PM EDT Davi Navarro MD POINT OF CARE TEST EN TER/EDIT ORDERABLES Final Result documented in this encounter Visit Diagnoses Diagnosis Type 2 diabetes mellitus without complication, without long-term current use of insulin ([facility])- Primary Primary hypertension Unspecified essential hypertension Bilateral wrist pain documented in this encounter Additional Health Concerns Assessment Noted Time PHQ-9 Depression Total Score: 0 03/15/20 25 2:27 PM EDT documented as of this encounter Care Teams Telephonic Rn Relationship Specialty Start Date End Date Davi Rivers MD [address] [place] [address] PCP - General Internal Medicine 03/29/18 documented as of this encounter
--- OUTSIDE RECORDS SUMMARY | 2025-03-15 16:36 | XMS_ITS | Encounter Summary ---
Author Organization [facility] Address [facility] [employer] [facility] [address] [place] [phone] Phone Care Team Providers Care Document Management Specialist Name Role Phone Davi Rojas MD Primary Care Provide r Unknown, Unknown Unavailable Unavailable Cecilia De La Torre RN Unavailable SOLO [email or web address] Encounter Details Date Type Department Care Team (Late Contact Info) Description 05/02/2021 Transcribe Orders [facility] [address] [place] [address] Lisbeth Garces [address] [place] [phone] [email or web address] Social History Tobacco Use Types Packs/Day Years Used Date Smoking Tobacco: Never Smokeless Tobacco: Never Alcohol Use Standard Drinks/Week Comments Yes 0 (1 standard drink = 0.6 oz pur e alcohol) 3-6 drinks per weekend Sex and Gender Information Value Date Recorded Sex Assigned at Male 10/11/2020 6:47 PM EDT Legal Sex Male 6:35 PM EDT Gender Identity Male 10/11/2020 6:47 PM EDT Sexual Orientation Straight 10/11/2020 6: 47 PM EDT documented as of this encounter Plan of Treatment Upcoming Encounters Date Type Department Care Team (Late Contact Info) Description 03/19/2025 10:40 AM EDT Office Visit [facility] Rhe[facility]ology [address], [address] [place] [address] John Gabriel DO [address] [place] [address] LUIS [email or web address] 03/20/2025 9:15 AM EDT Telemedicine [facility] [address] [facility], 5th [place] [address] Trice Castañeda MD [address] [address] [email or web address] documented as of this encounter Visit Diagnoses Not on filedocumented in this encounter Care Teams Document Management Specialist Relationship Specialty Start Date End Date Davi Rojas MD [address] [facility] [address] [place] [phone] [email or web address] PCP - General Internal Medicine 10/04/20 Unknown, Nano, 10/04/20 Cecilia De La Torre, RN [address] [place] [phone] [email or web address] Primary Infusion Nurse 02/01/23 documented as of this encounter Additional Source Comments The information contained in this document represents components of the legal health record. It is not the complete legal health record[facility]
--- OUTSIDE RECORDS SUMMARY | 2025-03-15 16:36 | XMS_ITS | Encounter Summary ---
Author Organization [facility] Address [facility] [address] [place] [address] Phone Care Team Providers Care Skin Care Instructor Name Role Phone Davi Rojas MD Primary Care Provide r Unknown, Unknown Unavailable Unavailable Cecilia De La Torre RN Unavailable SOLO @[email or web address] Encounter Details Date Type Department Care Team (Late st Contact Info) Description 02/12/2023 Procedure Pass [facility] Endoscopy Department [address] [place] [id number] Social History Tobacco Use Types Packs/Day Years Used Date Smoking Tobacco: Never Smokeless Tobacco: Never Alcohol Use Standard Drinks/Week Comments Yes 0 (1 standard drink = 0.6 oz pur e alcohol) 1 drink per weekend Education Answer Date Recorded Are you interested in more education? Not on adrienne e 10/24/2022 Are you concerned about learning? Not on file 10/24/2022 No 10/24/2022 No 10/24/2022 Digital Access Answer Date Recorded No 11/19/2022 No 11/19/2022 Reliable internet access at home? Not on file 11/19/2022 Device with a working camera? Not on file Sex and Gender Information Value Date Recorded Sex Assigned at Male 10/11/2020 6:47 PM EDT Legal Sex Male 6:35 PM EDT Gender Identity Male 10/11/2020 6:47 PM EDT Sexual Orientation Straight 10/11/2020 6: 47 PM EDT documented as of this encounter Plan of Treatment Upcoming Encounters Date Type Department Care Team (Late st Contact Info) Description 03/19/2025 10:40 AM EDT Office Visit [facility] Rheumatology [address], [address] [place] [address] oJhn Gabriel DO 55 [place] [address] LUIS [email or web address] 03/20/2025 9:15 AM EDT Telemedicine [facility] [address] [facility], 5th [place] [address] Trice Castañeda MD [address] [address] [email or web address] documented as of this encounter Visit Diagnoses Not on filedocumented in this encounter Care Teams Skin Care Instructor Relationship Specialty Start Date End Date Davi Rojas MD [address] [place] [phone] [email or web address] PCP - General Internal Medicine 10/04/20 Unknown, Nano, 10/04/20 Cecilia De La Torre, RN [address] [place] [phone] SOLO@[email or web address] daisy Primary Infusion Nurse 02/01/23 documented as of this encounter Additional Source Comments The information contained in this document represents components of the legal health record. It is not the complete legal health record.[facility]
--- OUTSIDE RECORDS SUMMARY | 2025-03-15 16:36 | XMS_ITS | Encounter Summary ---
Author Organization [facility] Address [facility] [address] [place] [address] Phone Care Team Providers Care Group Leader Semiconductor Processing Name Role Phone Davi Rojas MD Primary Care Provide r Unknown, Unknown Unavailable Unavailable Cecilia De La Torre RN Unavailable SOLO @[email or web address] Encounter Details Date Type Department Care Team (Late st Contact Info) Description 01/31/2021 Procedure Pass [address] [address] Social History Tobacco Use Types Packs/Day Years [...] Description 03/19/2025 10:40 AM EDT Office Visit [facility] Rhe[facility]ology [address], [address] [place] [address] John Gabriel DO 55 [place] [address] LUIS MANUEL@[email or web address] 03/20/2025 9:15 AM EDT Telemedicine [facility] 55 [facility], 5th [place] [address] Trice Castañeda MD [address] [address] MASHA@[email or web address] documented as of this encounter Visit Diagnoses Not on filedocumented in this encounter Care Teams Group Leader Semiconductor Processing Relationship Specialty Start Date End Date Davi Rojas MD [address] [place] [address] [address] [place] [phone] [email or web address] PCP - General Internal Medicine 10/04/20 Unknown, Unknown, 10/04/20 Cecilia De La Torre, RN [address] [place] [phone] [email or web address] daisy Primary Infusion Nurse 02/01/23 documented as of this encounter Additional Source Comments The information contained in this document represents components of the legal health record. It is not the complete legal health record.[facility]
--- OUTSIDE RECORDS SUMMARY | 2025-03-15 16:36 | XMS_ITS | Encounter Summary ---
Author Organization [facility] Address [address] [place] [address] Care Team Providers Care Hammer Shop Supervisor Name Role Phone Unavailable Primary Care Provider Unavailabl e Encounter Details Date Type Department Care Team (Late st Contact Info) Description 04/30/2015 Scanned Document [address] [phone] Provider, Generic Social History Tobacco Use Types Packs/Day Years Used Date Smoking Tobacco: Never Assessed Sex and Gender Information Value Date Recorded Sex Assigned at Not on file Legal Sex Male 3:27 PM EDT Gender Identity Not on file Sexual Orientation Not on file documented as of this encounter Plan of Treatment Not on file documented as of this encounter Visit Diagnoses Not on filedocumented in this encounter
--- OUTSIDE RECORDS SUMMARY | 2025-03-15 16:36 | XMS_ITS | Encounter Summary ---
Author Organization [facility] Address [facility] [address] [place] [address] Phone Care Team Providers Care Motorboat Mechanic Name Role Phone Davi Rojas MD Primary Care Provide r Unknown, Unknown Unavailable Unavailable Cecilia De La Torre RN Unavailable SOLO @[email or web address] Encounter Details Date Type Department Care Team (Late st Contact Info) Description 06/10/2021 Procedure Pass [address] [address] Social History Tobacco Use Types Packs/Day Years Used Date Smoking Tobacco: Never Smokeless Tobacco: Never Alcohol Use Standard Drinks/Week Comments Yes 0 (1 standard drink = 0.6 oz pur e alcohol) 1 drink per weekend Sex and Gender Information Value [...] Description 03/19/2025 10:40 AM EDT Office Visit [facility] Rheumatology [address], [address] [place] [address] John Gabriel DO 55 [place] [address] LUIS MANUEL@[email or web address] 03/20/2025 9:15 AM EDT Telemedicine [facility] 55 [facility], 5th [place] [address] Trice Castañeda MD 55 [facility] 4 [place] [address] MASHA@[email or web address] documented as of this encounter Visit Diagnoses Not on filedocumented in this encounter Care Teams Motorboat Mechanic Relationship Specialty Start Date End Date Davi Rojas MD [address] [place] [address] [place] [phone] [email or web address] PCP - General Internal Medicine 10/04/20 Unknown, Unknown, 10/04/20 Cecilia De La Torre, RN [address] [place] [phone] SOLO@[email or web address]. [email or web address] Primary Infusion Nurse 02/01/23 documented as of this encounter Additional Source Comments The information contained in this document represents components of the legal health record. It is not the complete legal health record.[facility]
--- OUTSIDE RECORDS SUMMARY | 2025-03-15 16:36 | XMS_ITS | Encounter Summary ---
Author Organization [facility] Address [facility] [address] [place] [address] Phone Care Team Providers Care Manager Pmo Name Role Phone Davi Rojas MD Primary Care Provide r Unknown, Unknown Unavailable Unavailable Cecilia De La Torre RN Unavailable SOLO @[email or web address] Encounter Details Date Type Department Care Team (Latest Contact Info) Description 06/16/2021 Transcribe Orders [address] [address] Eugenie Carrasco MD [address] [place] [address] [email or web address] Pre-procedural laboratory examination (Primary Dx) Social History Tobacco Use Types Packs/Day Years [...] Description 03/19/2025 10:40 AM EDT Office Visit [facility] Rheumatology [address], [address] [place] [address] John Gabriel DO 55 [place] [address] LUIS MANUEL@[email or web address] 03/20/2025 9:15 AM EDT Telemedicine [facility] [address] [facility], 5th [place] [address] Trice Castañeda MD 55 [facility] 4 [place] [address] MASHA@[email or web address] Scheduled Orders Name Type Priority Associated Diagnoses Orde r Schedule Poct Creatinine Point of Care Testing Routine Pre-procedural laboratory examination Ordered: 06/16/2021 documented as of this encounter Visit Diagnoses Diagnosis Pre-procedural laboratory examination- Primary documented in this encounter Care Teams Manager Pmo Relationship Specialty Start Date End Date Davi Rojas MD [address] [place] [phone] [email or web address] PCP - General Internal Medicine 10/04/20 Unknown, Nano, 10/04/20 Cecilia De La Torre, RN [address] [place] [phone] SOLO@[email or web address] Primary Infusion Nurse 02/01/23 documented as of this encounter Additional Source Comments The information contained in this document represents components of the legal health record. It is not the complete legal health record.[facility]
--- OUTSIDE RECORDS SUMMARY | 2025-03-15 16:36 | XMS_ITS | Encounter Summary ---
Author Organization [employer] Address [address] [place] [address] 7t [place] [address] Care Team Providers Care Millwright Apprentice Name Role Phone Davi Rivers MD Primary Care Provide r Reason for Visit * Reason Comments Med Refill Encounter Details Date Type Department Care Team ([facility] st Contact Info) Description 03/09/2023 Refill [facility] [address] [place], [place] [phone] Shameka Batres FNP Social History Tobacco Use [...] documented as of this encounter Care Teams Millwright Apprentice Relationship Specialty Start Date End Date Davi Rivers MD [address] [place], [place] [phone] PCP - General Internal Medicine 03/29/18 documented as of this encounter
--- OUTSIDE RECORDS SUMMARY | 2025-03-15 16:36 | XMS_ITS | Encounter Summary ---
Author Organization [facility] Address [facility] [address] [place] [address] Phone Care Team Providers Care Table Worker Packager Name Role Phone Davi Rojas MD Primary Care Provide r Unknown, Unknown Unavailable Unavailable Cecilia De La Torre RN Unavailable SOLO @[email or web address] Encounter Details Date Type Department Care Team (Late st Contact Info) Description 10/29/2022 Procedure Pass [address] [address] Social History Tobacco Use Types Packs/Day Years Used Date Smoking Tobacco: Never Smokeless Tobacco: Never Alcohol Use Standard Drinks/Week Comments Yes 0 (1 standard drink = 0.6 oz pur e alcohol) 1 drink per weekend Education Answer Date Recorded Are you interested in more education? Not on adrienne e 10/24/2022 Are you concerned about learning? Not on file 10/24/2022 No 10/24/2022 No 10/24/2022 Sex and Gender Information Value Date Recorded Sex Assigned at Male 10/11/2020 6:47 PM EDT Legal Sex Male 6:35 PM EDT Gender Identity Male 10/11/2020 6:47 PM EDT Sexual Orientation Straight 10/11/2020 6: 47 PM EDT documented as of this encounter Plan of Treatment Upcoming Encounters Date Type Department Care Team (Late st Contact Info) Description 03/19/2025 10:40 AM EDT Office Visit [facility] Rheumatology [address], [address] [place] [address] John Gabriel DO 55 [place] [address] LUIS MANUEL@[email or web address] 03/20/2025 9:15 AM EDT Telemedicine [facility] 55 [facility], 5th [place] [address] Trice Castañeda MD 55 [facility] 4 [place] [address] MASHA@[email or web address] documented as of this encounter Visit Diagnoses Not on filedocumented in this encounter Care Teams Table Worker Packager Relationship Specialty Start Date End Date Davi Rojas MD [address] [place] [address] [place] [phone] [email or web address] PCP - General Internal Medicine 10/04/20 Unknown, Unknown, 10/04/20 Cecilia De La Torre, RN [address] [place] [phone] SOLO@[email or web address]. daisy Primary Infusion Nurse 02/01/23 documented as of this encounter Additional Source Comments The information contained in this document represents components of the legal health record. It is not the complete legal health record.[facility]
--- OUTSIDE RECORDS SUMMARY | 2025-03-15 16:36 | XMS_ITS | Encounter Summary ---
Author Organization [facility] Address [address] [place] [address] Phone Care Team Providers Care Evaluation Specialist Name Role Phone Davi Rojas MD Primary Care Provide r Unknown, Unknown Unavailable Unavailable Cecilia De La Torre RN Unavailable SOLO @[email or web address] Encounter Details Date Type Department Care Team (Late st Contact Info) Description 06/09/2021 Procedure Pass [facility] [address] [place] [phone] Social History Tobacco Use Types Packs/Day Years [...] Description 03/19/2025 10:40 AM EDT Office Visit [facility] Rheumatology [address], [address] [place] [address] John Gabriel DO 55 [place] [address] LUIS MANUEL@[email or web address] 03/20/2025 9:15 AM EDT Telemedicine [facility] 55 [facility], 5th [place] [address] Trice Castañeda MD 55 [facility] 4 [place] [address] MASHA@[email or web address] documented as of this encounter Visit Diagnoses Not on filedocumented in this encounter Care Teams Evaluation Specialist Relationship Specialty Start Date End Date Davi Rojas MD [address] [place] [address] [place] [phone] [email or web address] PCP - General Internal Medicine 10/04/20 Unknown, Unknown, 10/04/20 Cecilia De La Torre, RN [address] [place] [phone] SOLO@[email or web address]. daisy Primary Infusion Nurse 02/01/23 documented as of this encounter Additional Source Comments The information contained in this document represents components of the legal health record. It is not the complete legal health record.[facility]
--- OUTSIDE RECORDS SUMMARY | 2025-03-15 16:36 | XMS_ITS | Clinical Summary ---
Author Organization [facility] Address [address] [place] [address] Care Team Providers Care Juice Tester Name Role Phone Unavailable Primary Care Provider [...] COVID-19 Vaccine ( - 2023-2 5 season) 2025 RSV Vaccine 60 years and old er and Patients (1 - 1-dose 75+ series) 2036 Hepatitis B Vaccines Aged Out No long er eligible based on patient's age to complete this topic
--- OUTSIDE RECORDS SUMMARY | 2025-03-15 16:36 | XMS_ITS | Encounter Summary ---
Author Organization [facility] Address [facility] [address] [place] [address] Phone Care Team Providers Care Steam Room Attendant Name Role Phone Davi Rojas MD Primary Care Provide r Unknown, Unknown Unavailable Unavailable Cecilia De La Torre RN Unavailable SOLO [email or web address] Encounter Details Date Type Department Care Team (Late st Contact Info) Description 11/20/2022 Procedure Pass [facility] Endoscopy Department [address] [place] [phone] Social History Tobacco Use Types Packs/Day Years [...] Description 03/19/2025 10:40 AM EDT Office Visit [facility] Rheumatology [address], [address] [place] [address] John Gabriel DO 55 [place] [address] LUIS MANUEL@[email or web address] 03/20/2025 9:15 AM EDT Telemedicine [facility] [address] [facility], 5th [place] [address] Trice Castañeda MD [address] [address] MASHA@[email or web address] documented as of this encounter Visit Diagnoses Not on filedocumented in this encounter Care Teams Steam Room Attendant Relationship Specialty Start Date End Date Davi Rojas MD [address] [place] [phone] [email or web address] PCP - General Internal Medicine 10/04/20 Unknown, Nano, 10/04/20 Cecilia De La Torre, RN [address] [place] [phone] [email or web address] Primary Infusion Nurse 02/01/23 documented as of this encounter Additional Source Comments The information contained in this document represents components of the legal health record. It is not the complete legal health record.[facility]
--- OUTSIDE RECORDS SUMMARY | 2025-03-15 16:38 | XMS_ITS | Clinical Summary ---
Author Organization [employer] Address [address] [place] [address] 7[address] [place] [address] Care Team Providers Care Label Coder Name Role Phone Davi Rivers MD Primary Care Provide r Allergies Active Allergy Reactions Criticality Noted Date Comments Lisinopril Cough 03/29/2018 Medications allopurinol (Zyloprim) 100 MG tablet Take 100 mg by mouth in the morning. 12/15/19 23 Active fluticasone furoate (Arnuity Ellipta) 200 MCG/ACT inhaler INHALE 1 PUFF BY MOUTH ONCE DAILY. 30 each 3 08/31/19 24 Active glipiZIDE XL (Glucotrol XL) 10 MG 24 hr tablet TAKE 1 TABLET BY MOUTH EVERY DAY WITH BREAKFAST 90 tablet 1 10/13/19 25 Active albuterol (Ventolin HFA) 108 (90 Base) MCG/ACT inhalerIndicatio ns:Mild persistent asthma without complication INHALE 2 PUFFS BY MOUTH EVERY 4 TO 6 HOURS IF NEEDED 18 g 3 12/13/19 25 Active metFORMIN (Glucophage) 1000 MG tabletIndication s:Hypertension associated with diabetes (CMS/HCC),Type 2 diabetes mellitus with other specified complication, without long-term current use of insulin (CMS/HCC) TAKE 1 TABLET BY MOUTH WITH BREAKFAST AND EVENING MEAL 180 tablet 1 12/22/19 25 Active irbesartan (Avapro) 150 MG tabletIndication s:Primary hypertension TAKE 1 TABLET BY MOUTH EVERY DAY 90 tablet 1 03/08/20 25 Active irbesartan (Avapro) 150 MG tabletIndication s:Primary hypertension TAKE 1 TABLET BY MOUTH EVERY DAY 90 tablet 1 09/09/19 25 025 Discontinued Active Problems Problem Noted Date Diagnosed Date Bilateral wrist pain 03/15/2025 Assessment & Plan (03/15/2025 2:47 PM EDT): Bilateral wrist pain On exam decreased ROM Suspect OA Plan: x-rays both wrists S/P TKR (total knee replacement), left Assessment [...] tells me he had a colonoscopy at [facility], records requested Assessment & Plan (09/21/2023 1:19 PM EDT): Scheduled to see GI 10/18/2023 Assessment & Plan (06/17/2023 2:26 PM EST): Will refer back overdue Preventative health care 12/01/2022 Assessment & Plan (12/12/2024 11:25 AM EDT): PSA 07/2024 Normal, Colonoscopy: Hyperplastic Polyp 05/10/2012 Dr. Zurita ( file under Pulmonology consults). Repeat 05/15/2024 Dr Galeano Normal aside from internal hemorrhoids, 10 yr follow up recommended done at [facility] Assessment & Plan (08/24/2024 3:38 PM EST): 2018 Normal, ordered Colonoscopy: Hyperplastic Polyp 05/10/2012 Dr. Zurita ( file under Pulmonology consults). Repeat 05/15/2024 Dr Galeano Normal aside from internal hemorrhoids, 10 yr follow up recommended done at [facility] Assessment & Plan (05/23/2024 1:36 PM [...] PM EST): Quantiferon gold done by Dr Montague positive ? Pt asymptomatic, no recent exposure Pt with diabetes and on intermitent prednisone that could weaken his immune system I recommended to repeat the Quantiferon test and obtain a , Chest x-ray. Pt told me he was told by Dr Lopez the [employer] [employer] that he was going to do that [...] PM EDT): Quantiferon gold done by Dr Montague positive ? Pt asymptomatic, no recent exposure Pt with diabetes and on intermitent prednisone that could weaken his immune system I recommended to repeat the Quantiferon test and obtain a , Chest x-ray. Pt told me he was told by Dr Lopez the [employer] that he was going to do that [...] PM EDT): Quantiferon gold done by Dr Montague positive ? Pt asymptomatic, no recent exposure Pt with diabetes and on intermitent prednisone that could weaken his immune system I recommended to repeat the Quantiferon test and obtain a , Chest x-ray. 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 in Dr Montague recommended to repeat in 2 months EGD was done 08/25/2020 Biopsies showed NO evidence of Nigel esophagus , GI recommended to repeat in 3 years Type 2 diabetes mellitus without complication Assessment & Plan (03/15/2025 2:57 PM EDT): Pt here for a f/u [...] 3 months follow up Assessment & Plan (12/12/2024 11:21 AM EDT): Pt here for a f/u regarding his DM he is on a regimen of Metformin 1000 mg 1 tabs po BID and Glipizide ER 10 mg in AM Hgb A1c 12/12/2024: 6 Pt is on an ARB Foot check risk of zero Microalbumin 07/15/2021 was 0.4 Pt reports compliance with Asa 81 mg po daily Pt not checking his blood sugar Plan: Continue current regimen Pt advised to: adhere to diabetic diet check your blood sugars regularly check your feet on a daily basis 3 months follow up Assessment & Plan (08/24/2024 1:30 PM EST): [...] PM EST): Under the care of Dr Montague Who has been following for pancreas mass [...] may be associated cholangiopathy. 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 He is now s/p RTX 1,000 mg x2 infusions in January 2023. He is Off prednisone and biliary stent removed in March 2023. Last seen by [facility] John Gabriel D.O. 07/24/2024 He recommended: Monitoring [...] PM EDT): Under the care of Dr Montague Who has been following for pancreas mass [...] may be associated cholangiopathy. 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 He is now s/p RTX 1,000 mg x2 infusions in January 2023. He is Off prednisone and biliary stent removed in March 2023. Last seen by [facility] Breanne PelaezO. 07/2023 He recommended: -MRCP scheduled for October. -Follow up with him and Dr. Carrasco after imaging. -stated patient needs close monitoring to prevent additional biliary and pancreatic damage. Assessment & Plan (06/17/2023 2:15 PM EST): Under the care of Dr Montague Who has been following for pancreas mass [...] may be associated cholangiopathy. According to Dr Montague His blood tests and imaging continue to [...] Rheumatology ( Dr Lopez ) by Dr Montague He was last seen 04/2023 He is [...] PM EDT): Under the care of Dr Montague Who has been following for pancreas mass [...] may be associated cholangiopathy. According to Dr Montague His blood tests and imaging continue to [...] Rheumatology ( Dr Lopez ) by Dr Montague He was seen 11/25/2022 He is concerned [...] PM EDT): Under the care of Dr Montague Who has been following for pancreas mass [...] may be associated cholangiopathy. According to Dr Montague His blood tests and imaging continue to [...] Rheumatology ( Dr Lopez ) by Dr Montague He was seen 11/25/2022 He is concerned [...] 11/01/2018 Primary hypertension 03/29/2018 Assessment & Plan (03/15/2025 2:49 PM EDT): Pt here for a f/u for his HTN BP elevated He is on a regimen of: Irbesartan 150 mg po daily. Pt developed cough with Lisinopril. Most recent Scr 11/21/2024 Normal done at [facility] patient advised to adhere to a low sodium diet, encouraged about medication compliance, counseled about weight loss. f/u 4 months with me 2 weeks with RN for BP check Assessment & Plan (12/12/2024 11:22 AM EDT): Pt here for a f/u for his HTN BP controlled He is on a regimen of: Irbesartan 150 mg po daily. Pt developed cough with Lisinopril. Most recent Scr 11/21/2024Normal done at [facility] patient advised to adhere to a low sodium diet, encouraged about medication compliance, counseled about weight loss. f/u 4 months Assessment & Plan (08/24/2024 1:30 PM EST): Pt here for a f/u for his HTN BP controlled He is on a regimen of: Irbesartan 150 mg po daily. Pt developed cough with Lisinopril. Most recent Scr 03/27/2024 Normal done at [facility] patient advised to adhere to a low sodium diet, encouraged about medication compliance, counseled about weight loss. f/u 4 months Assessment & Plan (05/23/2024 1:25 PM EST): Pt here for a f/u for his HTN BP controlled He is on a regimen of: Irbesartan 150 mg po daily. Pt developed cough with Lisinopril. Most recent Scr 03/27/2024 Normal done at [facility] patient advised to adhere to a low sodium diet, encouraged about medication compliance, counseled about weight loss. f/u 4 months Assessment & Plan (01/18/2024 1:11 PM EDT): Pt here for a f/u for his HTN controlled He is on a regimen of: Irbesartan 150 mg po daily. Pt apparently developed cough with Lisinopril. Most recent BMP 09/2023 Normal done at [facility] patient advised to adhere to a [...] (09/21/2023 1:20 PM EDT): PFTs done at [facility] confirmed diagnosis Pt on Arnuity Ellipta and Pro-Air with good results Assessment & Plan (12/01/2022 1:04 PM EDT): PFTs done at [facility] confirmed diagnosis Pt on Flovent and Pro-Air with good results Resolved Problems Problem Noted Date Diagnosed Date Resolved Date Impaired glucose tolerance 03/29/2018 0 12/01/2022 Encounters Date Type Department Care Team Description 03/15/2025 2:15 PM EDT Office Visit [facility] [address] [place] [address] Davi Rivers MD Type 2 diabetes mellitus without complication, without long-term current use of insulin (CMS/HCC) (Primary Dx); Primary hypertension; Bilateral wrist pain 03/15/2025 Travel 03/14/2025 Telephone [facility] [address] [place] [address] Davi Rivers MD chart prep 03/08/2025 Refill [facility] [address] [place] [address] Linda Vang ANP Primary hypertension 12/20/2024 Refill [facility] [address], [place] [phone] Davi Rivers MD Hypertension associated with diabetes (CMS/HCC); Type 2 diabetes mellitus with other specified complication, without long-term current use of insulin (CMS/HCC) from Last 3 Months Immunizations Immunization Administration Dates Next Due DTaP 07/20/2011 Tdap [...] Mass Index 27.97 03/15/2025 2:26 PM EDT Plan of Treatment Health Maintenance Due Date [...] - Risk 60-74 years 1-dose series) 2021 COVID-19 Vaccine (2 - season) 2025 10/05/2020 Influenza Vaccine (#1) 2025 Alcohol/Substance Use Screening 05/23/2025 05/23/2024 Diabetes: Hemoglobin A1C 06/14/2025 025, 12/12/2024, 08/24/2024, Additional history exists SDOH Screening 08/11/2025 08/11/2024 Diabetes: Urine Protein Screening 08/24/2025 08/24/2024, 07/15/2021, 04/17/2020 Lipid Panel 08/24/2025 08/24/2024, 06/28, 04/17/2020 Disability Screening 12/12/2025 12/12/2024 Tobacco Screening 12/12/2025 12/12/2024 Depression Screening 03/15/2026 03/15/2025, 03/15/20 25 DTaP/Tdap/Td Vaccines (3 - Td or Tdap) [...] patient's age to complete this topic Meningococcal B Vaccine Aged Out No l onger eligible based on patient's age to complete [...] use of insulin (CMS/HCC) POCT GLUCOSE Routine 03/15/2025 2:25 PM EDT Type 2 diabetes mellitus without complication, without long-term current use of insulin (CMS/HCC) ALBUMIN, RANDOM URINE W/CREATININE Routine 08/24/2024 1:54 PM EST Type 2 diabetes mellitus without complication, without long-term current use of insulin (CMS/HCC) LIPID PANEL WITH REFLEX TO DIRECT LDL Routine 08/24/2024 1:54 PM EST Primary hypertension HM COLONOSCOPY Routine 05/15/2024 ZZZ HISTORICAL HEPATITIS C AB W/REFL TO HCV RNA, QN, PCR Routine 08/19/2020 3:15 PM EST from Last 3 Months or Most Recently Relevant to Health Maintenance Results * XR Wrist 3+ Views Left (03/15/2025 3:40 PM EDT) Anatomical Region Laterality Modality Upper Extremities, Wrist Left Radiogr aphic Imaging 03/15/2025 3:40 PM EDT Narrative 03/15/2025 3:54 PM EDT [address] [address] XRay Report Signed Patient: Roque Patino MR#: [id number] : 1960 Acct:[id number] Age/Sex: 64 / M ADM Date: 03/15/25 Loc: [facility] Attending Dr: Davi Rojas MD Ordering Physician: Davi Rojas MD Date of Service: 03/15/25 Procedure(s): XR wrist LT min 3V Accession Number(s): [id number] cc: Davi Rojas MD Reason for Exam: [...] Erik Franz MD 03/15/2025 03:51 PM EDT Dictated By: Erik Franz MD Signed By: <Electronically signed by Erik Franz MD in OV> 03/15/25 1551 DD/ 1540 TD/TT: 03/15/25 1543 Agricultural Systems Specialist: Procedure Note Donotuseinterpreter, Image - 03/15/[address] [address] XRay Report Signed Patient: Roque Patino LMR#: [id number] : 1960cct:[id number] Age/Sex: 64 / MADM Date: 03/15/25 Loc: REJI Attending Dr: Davi Rojas MD Ordering Physician: Davi Rojas MD Date of Service: 03/15/25 Procedure(s): XR wrist LT min 3V Accession Number(s): [id number] cc: Davi Rojas MD Reason for Exam: [...] Erik Franz MD 03/15/2025 03:51 PM EDT Dictated By: Erik Franz MD Signed By: <Electronically signed by Erik Franz MD in OV> 03/15/25 1551 DD/ 1540 TD/TT: 03/15/25 1543 Agricultural Systems Specialist: us Davi Navarro MD IMG XR PROCEDURES Fin al Result * XR Wrist 3+ Views Right (03/15/2025 3:27 PM EDT) Anatomical Region Laterality Modality Upper Extremities, Wrist Right Radiogr aphic Imaging 03/15/2025 3:27 PM EDT Narrative 03/15/2025 3:57 PM EDT [address] [address] XRay Report Signed Patient: Roque Patino MR#: [id number] : 1960 Acct:[id number] Age/Sex: 64 / M ADM Date: 03/15/25 [facility]: Davi Rojas MD Ordering Physician: Davi Rojas MD Date of Service: 03/15/25 Procedure(s): XR wrist RT min 3V Accession Number(s): [id number] cc: Davi Rojas MD Reason for Exam: [...] Erik Franz MD 03/15/2025 03:54 PM EDT RP Dictated By: Erik Franz MD Signed By: <Electronically signed by Erik Franz MD in OV> 03/15/25 1554 DD/ 1527 TD/TT: 03/15/25 1543 Agricultural Systems Specialist: Procedure Note Donotuseinterpreter, Image - 03/15/[address] [address] XRay Report Signed Patient: Roque Patino LMR#: [id number] : 1960cct:[id number] Age/Sex: 64 / MADM Date: 03/15/25 Loc: HO.[facility] Attending Dr: Davi Rojas MD Ordering Physician: Davi Rojas MD Date of Service: 03/15/25 Procedure(s): XR wrist RT min 3V Accession Number(s): [id number] cc: Davi Rojas MD Reason for Exam: [...] 03/15/25 1554 DD/ 1527 TD/TT: 03/15/25 1543 Agricultural Systems Specialist: Davi Navarro MD IMG XR PROCEDURES Fin al Result * (ABNORMAL) POCT Hgb A1c (03/15/2025 2:50 PM EDT) [facility] Hemoglobin A1C 7.0(A) 4.0 - 5.7 % QC Media Lot # [id number] Lot# Expiration Date [id number] Blood 03/15/2025 2:50 PM EDT Davi Navarro MD POINT OF CARE TEST EN TER/EDIT ORDERABLES Final Result * POCT Glucose (03/15/2025 2:25 PM EDT) Glucose Blood, POC 190 60 - 200 mg/dL [employer] Lot # [id number] Lot# Expiration Date [id number] Blood Capillary blood specimen / Unknown 03/15/2025 2:25 PM EDT Davi Navarro MD POINT OF CARE TEST EN TER/EDIT ORDERABLES Final Result * (ABNORMAL) Lipid Panel with Reflex to Direct LDL (08/24/2024 1:54 PM EST) Triglycerides 253(H) <150 mg/dL [facility] Comment:Desirable Triglyceri de: less than 150 mg/dLBorderline High Triglyceride 150-199 mg/dLHigh Triglyceride: 200-499 mg/dLVery High Triglyceride: greater than or equal to 5OO mg/dL Cholesterol 179 <200 mg/dL [facility] Comment:Desirable Cholestero l: less than 200 mg/dLBorderline High Cholesterol: 200-239 mg/dLHigh Cholesterol: greater than 239 mg/dL LDL Cholesterol Calculated 82 <100 mg/dL [facility] Comment:Desirable LDL: less than 100 mg/dLNear Optimal/Above Optimal LDL: 110- 129 mg/dLBorderline High LDL: 130-159 mg/dLHigh LDL: 160-189 mg/dLVery High LDL: greater than or equal to 190 mg/dL HDL Cholesterol 47 >40 mg/dL [facility] Comment:Desirable HDL: great er than 40 mg/dL Note: This HDL assay may give artificially low results in patients with liver disease. Blood 08/24/2024 1:54 PM EST 08/24/2024 4:11 PM EST Davi Navarro MD LAB BLOOD ORDERABLES Final Result [facility] [address] [place] [phone] * Albumin, Random Urine W/Creatinine (08/24/2024 1:54 PM EST) Creatinine, Urine 365.64 mg/dL [facility] Microalbumin Urine 23.0 mg/L H [facility] Microalbum Creatinine Ratio Ur 6.2 <30 ug/mg cr [facility] Comment:Albumin/Creatinine R atio Reference Ranges: Normal: < 30 ug/mg creatinine Microalbuminuria: 30 - 300 ug/mg creatinineClinical Albuminuria: > 300 ug/mg creatinine Urine (Urine, Random) 08/24/2024 1:54 PM EST 08/24/2024 4:09 PM EST Davi Navarro MD LAB URINE ORDERABLES Final Result [facility] [address] [place] [phone] [phone] * Hm Colonoscopy (05/15/2024) Colonoscopy Normal Normal 05/15/2024 Historical Provider HEALTH MAINTENANCE Final Result * HEPATITIS C AB W/REFL TO HCV RNA, QN, PCR (08/19/2020 3:15 PM EST) HEPATITIS C ANTIBODY NON-REACT R[facility]IGO NON-REACT [facility] INDEX 0.02 <1.00 [facility] Comment: HCV antibody was non-reactive. There is no laboratory evidence of HCV infection. In most cases, no further action is required. However, if recent HCV exposure is suspected, a test for HCV RNA (test code 40730) is suggested. For additional information please refer to http://education.[employer] [place]/faq/MFE37x6 (This link is being provided for informational/ educational purposes only.) 08/19/2020 3:15 PM EST Davi Navarro MD HISTORICAL/NON ORDERA BLE LABS Final Result [facility] Anywhere [address] from Last 3 Months or Most Recently Relevant to Health Maintenance Insurance [facility] PPO MEDICARE Care Teams Label Coder Relationship Specialty Start Date End Date Davi Rivers MD [address] [place] [id number] PCP - General Internal Medicine 03/29/18
--- OUTSIDE RECORDS SUMMARY | 2025-03-15 16:38 | XMS_ITS | Encounter Summary ---
Author Organization [facility] Address [facility] [address] [place] [address] Phone Care Team Providers Care 411 Directory Assistance Operator Name Role Phone Davi Rojas MD Primary Care Provide r Unknown, Unknown Unavailable Unavailable Cecilia De La Torre RN Unavailable [email or web address] Encounter Details Date Type Department Care Team (Late st Contact Info) Description 08/28/2022 Procedure Pass [address] [address] Social History Tobacco Use Types Packs/Day Years [...] [facility] Rheumatology [address], [address] [place] [address] John Gabriel DO [address] [place] [address] LUIS [email or web address] 03/20/2025 9:15 AM EDT Telemedicine [facility] [address] [facility], 5th [place] [address] Trice Castañeda MD [address] [facility] [address] [place] [address] [email or web address] documented as of this encounter Visit Diagnoses Not on filedocumented in this encounter Care Teams 411 Directory Assistance Operator Relationship Specialty Start Date End Date Davi Rojas MD [address] [place] [address] [place] [phone] [email or web address] PCP - General Internal Medicine 10/04/20 Unknown, Unknown, 10/04/20 Cecilia De La Torre, RN [address] [place] [phone] [email or web address] Primary Infusion Nurse 02/01/23 documented as of this encounter Additional Source Comments The information contained in this document represents components of the legal health record. It is not the complete legal health record.[facility]
--- OUTSIDE RECORDS SUMMARY | 2025-03-15 16:38 | XMS_ITS | Encounter Summary ---
Author Organization [facility] Address [address] [place] [address] Phone Care Team Providers Care Air Grinder Name Role Phone Davi Rojas MD Primary Care Provide r Unknown, Unknown Unavailable Unavailable Cecilia De La Torre RN Unavailable SOLO @[email or web address] Encounter Details Date Type Department Care Team (Late st Contact Info) Description 11/05/2023 Ancillary Orders [facility] [address] [facility]2-2 [place] [address] Eugenie Carrasco MD [address] [place] [phone] [email or web address] IgG4 related disease (Primary Dx) Social History Tobacco Use Types [...] with a working camera? Not on file Intimate Partner Violence Answer Date R ecorded Are you denied basic needs s uch as food, clothing, or medical care? No 04/30/2023 In the past 12 months have y ou been in a relationship with a person who hurts, threatens, or tries to control you? No 04/30/2023 Are you denied basic needs s uch as food, clothing, or medical care? No 04/30/2023 In the past 12 months have y ou been in a relationship with a person who hurts, threatens, or tries to control you? No 04/30/2023 Sex and Gender Information Value Date Recorded Sex Assigned at Male 10/11/2020 6:47 PM EDT Legal Sex Male 6:35 PM EDT Gender Identity Male 10/11/2020 6:47 PM EDT Sexual Orientation Straight 10/11/2020 6: 47 PM EDT documented as of this encounter Plan of Treatment Upcoming Encounters Date Type Department Care Team (Late st Contact Info) Description 03/19/2025 10:40 AM EDT Office Visit [facility] Rheumatology [address], [address] [place] [address] John Gabriel DO [address] [place] [phone] LUIS [email or web address] 03/20/2025 9:15 AM EDT Telemedicine [facility] [address] [place] [address], 5th [place] [address] Trice Castañeda MD [address] [place] [phone] [email or web address] documented as of this encounter Results * XR Orbit For Foreign Body (Bilateral) (11/05/2023 11:37 AM EDT) Anatomical Region Laterality Modality Face Computed Radiogr aphy 11/05/2023 12:0 0 PM EDT Impressions 11/05/2023 1:02 PM EDT No radiopaque foreign body. Narrative 11/05/2023 1:02 PM EDT XR ORBIT FOR FOREIGN BODY (BILATERAL) Referring clinician's provided indication for this examination in [facility]: Abnormal imaging; History Of Foreign Body In Eye COMPARISON: Previous radiograph dated 11/16/2011. FINDINGS: No radiopaque foreign body. Small round density in the superior right orbit on the AP view does not reach metallic density and likely represents superimposed osseous structures. Procedure Note Emelyn Chapman MD, PhD - 11/05/2023 XR ORBIT FOR FOREIGN BODY (BILATERAL) Referring clinician's provided indication for this examination in [facility]:Abnormal imaging; History Of Foreign Body In Eye COMPARISON: Previous radiograph dated 11/16/2011. FINDINGS: No radiopaque foreign body. Small round density in the superior rightorbit on the AP view does not reach metallic density and likely representssuperimposed osseous structures. IMPRESSION: No radiopaque foreign body. 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 documented in this encounter Care Teams Air Grinder Relationship Specialty Start Date End Date Davi Rojas MD [address] [place] [address] [place] [phone] [email or web address] PCP - General Internal Medicine 10/04/20 Unknown, Unknown, 10/04/20 Cecilia De La Torre, RN [address] [place] [phone] [email or web address] daisy Primary Infusion Nurse 02/01/23 documented as of this encounter Additional Source Comments The information contained in this document represents components of the legal health record. It is not the complete legal health record.[facility]
--- OUTSIDE RECORDS SUMMARY | 2025-03-15 16:38 | XMS_ITS | Clinical Summary ---
Author Organization [facility] Address [facility] [address] [place] [address] Phone Care Team Providers Care Preparation Supervisor Canning Name Role Phone Davi Rojas MD Primary Care Provide r Unknown, Unknown Unavailable Unavailable Cecilia De La Torre RN Unavailable SOLO [email or web address] Allergies Active Allergy Reactions Criticality Noted Date Comments Lisinopril 10/22/2020 Medications FLOVENT HFA 220 mcg/actuation inhaler 1 Active glipiZIDE (GLUCOTROL) 10 MG 24 hr tablet 1 Active irbesartan (AVAPRO) 75 MG tablet 1 Active metFORMIN (GLUCOPHAGE) 1000 MG tablet 2,000 mg. 1 tab in the morning, 1 tab in the afternoon 1 Active omeprazole (PRILOSEC) 20 MG capsule Take 20 mg by mouth daily. 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 Resolved Problems Problem Noted Date Diagnosed Date Resolved Date Pancreatic mass 10/22/2020 10/22/2020 Encounters Date Type Department Care Team Description 01/20/2025 Refill [facility] Rheumatology [place] [address] [address] [facility], [address] [place] [address] John Gabriel, Medication Refill from Last 3 Months Immunizations Immunization Administration Dates Next Due DTaP 07/20/2011 Zoster live 07/31/2013 Family History Medical History Relation Comments Breast cancer Maternal Grandmother Relation Status Comments Maternal Grandmother Social History Tobacco Use Types Packs/Day Years Used Date Smoking Tobacco: Never Smokeless Tobacco: Never Tobacco Cessation:Counseling Given: Not Answered Alcohol Use Standard Drinks/Week Comments Yes 0 [...] Orientation Straight 10/11/2020 6: 47 PM EDT Last Filed Vital Signs Vital Sign Reading Time Taken Comments Blood Pressure 135/86 11/28/2024 1:49 PM EDT Pulse 93 11/28/2024 1:49 PM EDT Temperature 36.4 C (97.5 F) 11/28/2024 1:49 PM EDT Respiratory Rate 14 04/30/2023 11:15 AM EDT Oxygen Saturation 96% 11/28/2024 1:49 PM EDT Inhaled Oxygen Concentration 25.3% 08/27/2022 5 :40 PM EST Weight 93 kg (205 lb 1.6 oz) 11/28/2024 1:49 PM EDT Height 185.4 cm (6' 1 ) 10/23/2024 11:47 AM EDT Body Mass Index 27.06 10/23/2024 11:47 AM EDT Plan of Treatment Upcoming Encounters Date Type Department Care Team (Late st Contact Info) Description 03/19/2025 10:40 AM EDT Office Visit [facility] Rheumatology [address], [address] [place] [address] John Gabriel DO [address] [place] [phone] LUIS [email or web address] 03/20/2025 9:15 AM EDT Telemedicine [facility] [address] [facility], 5th [place] [address] Trice Castañeda MD [address] [address] [email or web address] Maintenance Due Date Last Done Comments DEPRESSION SCREENING 1973 HIV ONE-TIME SCREENING (18-65 YEARS) 1979 COLOGUARD 2006 COLONOSCOPY 2006 COLORECTAL CANCER SCREENING 2006 FIT TEST 2006 FOBT 2006 SIGMOIDOSCOPY 2006 VIRTUAL COLONOSCOPY 2006 PNEUMOCOCCAL VACCINES (50+ years) (1 of 1 - PCV) 2011 ZOSTER VACCINES (2 of 3) 09/25/2013 07/31/2013 POTASSIUM LEVEL 10/12/2024 10/13/2023, 08/0 12/2022, 11/25/2022, Additional history exists INFLUENZA VACCINE (#1) 2025 COVID-19 VACCINE (2 - 2024- season) 2025 10/05/2020 CREATININE LEVEL 11/21/2025 11/21/2024, , 01/04/2024, Additional history exists SCREENING FOR DIABETES 08/24/2027 , 05/23/2024, 01/18/2024, Additional history exists LIPID PANEL 10/12/2028 10/13/2023, 07/15/2021 Adult Td,Tdap Booster 01/17/2034 01/18/2024 RSV VACCINE (1 - 1-dose 75+ series) 2036 HEPATITIS C SCREENING Completed 11/25/2022 SMOKING STATUS SCREENING (Once After 26 Yrs) Completed 11/28/2024 HEPATITIS A VACCINES Aged Out No long er eligible based on patient's age to complete this topic HIB VACCINES Aged Out No longer eligi ble based on patient's age to complete this topic MENINGOCOCCAL VACCINES (ACWY) Aged Out No longer eligible based on patient's age to complete this topic MENINGOCOCCAL VACCINES (B) Aged Out N o longer eligible based on patient's age to complete this topic Medical Devices Implanted Type Area Bobbin Handler Device Identifier Shelf Expiration Date Model / Serial / Lot Coil Angie Embolization 5mm 12cm .02in Fully Detachable Resheathable Lg Volume Complex Standard Frame Periph - [id number] Implanted:Qty: 1 on 08/27/2022 by Gerald Ordonez MD at [facility] Coil Left: Abdomen [employer] 07/08/2029 [id number] / / [id number] Description:LT SPLENIC ART Coil Angie Pod 6-8mm 60cm .02in Embolization Occlusion Device - [id number] Implanted:Qty: 1 on 08/27/2022 by Gerald Ordonez MD at [facility] Coil Left: Abdomen [employer] 05/24/2030 [id number] / / [id number] Description:LT SPLENIC ART 1.5 or 3T Normal Mode mt Coil Angie Embolization 5mm 12cm .02in Fully Detachable Resheathable Lg Volume Complex Standard Frame Periph - [id number] Implanted:Qty: 1 on 08/27/2022 by Gerald Ordonez MD at [facility] Coil Left: Abdomen [employer] 07/08/1929 [id number] / / [id number] Device Closure 6fr .035in Vascular Angio-Seal Vip Collagen Bioabsorbable Intraarterial Suture Tether Bx/10ea - [id number] Implanted:Qty: 1 on 08/27/2022 by Gerald Ordonez MD at [facility] Right: Groin Moonfruit 04/27/2023 [id number] / / [id number] Explanted Type Area Bobbin Handler Device Identifier Shelf Expiration Date Model / Serial / Lot Stent Biliary [id number] 7fr Advanix Polyethylene Plastic Naviflex Preload Rapid Exchange T[place]red [place] - [id number] Implanted:Qty: 1 on 08/11/2022 by Keenan Rodriguez MD at [facility] Explanted:Qty: 1 on 08/24/2022 by Duong Perez MD at [facility] DermaGen CURRY [id number] 12/16/2023 [id number] / / [id number] Stent Biliary [id number] 7fr Advanix Polyethylene Plastic Naviflex Preload Rapid Exchange [place] - [id number] Implanted:Qty: 1 on 08/11/2022 by Keenan Rodriguez MD at [facility] Explanted:Qty: 1 on 08/24/2022 by Duong Perez MD at [facility] [employer] CUR[employer] [id number] 12/16/2023 [id number] / / [id number] Description:Biliary duct Stent Advanix 7fr 12cm Rx Biliary [place] Single Polyethylene Naviflex Delivery System - [id number] Implanted:Qty: 1 on 08/24/2022 by Duong Perez MD at [facility] Bile Duct [employer] [id number] 12/26/2022 [id number] / [id number] / [id number] Stent Biliary [id number] 7fr Advanix Polyethylene Plastic Naviflex Preload Rapid Exchange [employer] [place] - [id number] Implanted:Qty: 1 on 08/24/2022 by Duong Perez MD at [facility] Bile Duct [employer] [id number] 02/28/2024 [id number] / [id number] / [id number] Stent Advanix 8.5fr 12cm Rx Biliary [place] Preloaded - [id number] Implanted:Qty: 1 on 11/20/2022 by Duong Perez MD at [facility] Explanted:2022 (Quantity not on file) Bile Duct [employer] [id number] 07/28/2024 [id number] / / [id number] Stent Advanix 8.5fr 12cm Rx [facility] Preloaded - [id number] Implanted:Qty: 1 on 02/12/2023 by Duong Perez MD at [facility] Explanted:Qty: 1 on 04/30/2023 at [facility] Bile Duct [employer] [id number] 10/27/2024 [id number] / / [id number] Procedures Procedure Name Priority Date/Time Associated Diagnosis Comments CREATININE/EGFR Routine 11/21/2024 3:45 PM EDT IgG4 related disease [facility] current use of immunosuppressive drug Disorder of immune system LIPID PROFILE WITH DIRECT LDL Routine 10/13/2023 2:02 PM EDT BASIC METABOLIC PANEL Routine 10/13/2023 2:02 PM EDT HEPATITIS C ANTIBODY, QUALITATIVE Routine 11/25/2022 12:29 PM EDT Need for hepatitis C screening test Vitamin D deficiency, unspecified IgG4 related disease [facility] current use of immunosuppressive drug Disorder of immune system from Last 3 Months or Most Recently Relevant to Health Maintenance Results * Creatinine/eGFR (11/21/2024 3:45 PM EDT) CREATININE 0.93 0.50 - 1.20 mg/dL [facility] EGFR 92 >59 mL/min/1.7 3m2 [facility] Comment:Estimated glomerular filtration rate calculated using the CKD-EPI refit equation. Blood 11/21/2024 3:45 PM EDT 11/21/2024 3:52 PM EDT us John Gabriel DO LAB BLOOD ORDERABLES Final Re sult Performing Organization Address City/[facility]/ZIP Co de Phone Number [facility] [address] [place] [address] * (ABNORMAL) Lipid profile with direct LDL (10/13/2023 2:02 PM EDT) CHOLESTEROL 179 <200 mg/dL [facility] Comment: TRIGLYCERIDES 297(H) 35 - 150 mg/dL [facility] Comment: HDL 48 40 - 80 mg/dL [facility] Comment: LDL Chol (Direct) 101 50 - 129 mg/dL [facility] Comment: CARDIAC RISK RATIO 3.7 0.0 - 4.0 [facility] VLDL 30 <31 mg/dL [facility] 10/13/2023 2:02 PM EDT 10/13/2023 2:13 PM EDT Davi Rojas MD LAB BLOOD ORDERABLES Final Result Performing Organization Address [facility]/ZIP Co de Phone Number [facility] [address] [place] [address] * (ABNORMAL) Basic metabolic panel (10/13/2023 2:02 PM EDT) SODIUM 139 136 - 145 mmol/L [facility] POTASSIUM 4.3 3.4 - 5.1 mmol/L [facility] CHLORIDE 100 98 - 107 mmol/L [facility] CO2 24 22 - 31 mmol/L [facility] BUN 11 6 - 23 mg/dL [facility] CREATININE 0.79 0.50 - 1.20 mg/dL [facility] GLUCOSE 118(H) 70 - 100 mg/dL [facility] CALCIUM 9.9 8.8 - 10.7 mg/dL [facility] EGFR 100 >59 mL/min/1.7 3m2 [facility] Comment:Estimated glomerular filtration rate calculated using the CKD-EPI refit equation. ANION GAP 15 7 - 17 mmol/L [facility] 10/13/2023 2:02 PM EDT 10/13/2023 2:13 PM EDT us Davi Rojas MD LAB BLOOD ORDERABLES Final Result [facility] [address] [place] [address] * Hepatitis C antibody, qualitative (11/25/2022 12:29 PM EDT) HCV ANTIBODY Negative Negative [facility] Comment:Antibodies to HCV no t detected. Does not exclude the possibility of exposure to HCV. Blood 11/25/2022 12:2 9 PM EDT 11/25/2022 1:26 PM EDT us John Gabriel DO LAB BLOOD ORDERABLES Final Re sult [facility] [address] [place] [address] from Last 3 Months or Most Recently Relevant to Health Maintenance Insurance [facility] OUT [facility] PPO MEDICARE PART A & B [employer]UE [place] [facility] PPO Member Subscriber Plan / Payer (Ef fective 2012-Present) Name:Roque Mata Member ID:[id number] Relation to Subscriber:Self Name:Roque Mata Subscriber ID:[id number] Payer ID:[id number] (IC) Type:PPO Address: [facility] [id number] [place] [address] MEDICARE PART A & B BLUE [place] OUT OF [facility] P[place] MEDICARE PART [place] [address] [facility] PPO [facility] [place] [address] [facility] [place] [id number] [facility] PPO MEDICARE PART A & B [place] OUT OF [facility] PPO MEDICARE PART A & B [place] OUT [facility] PPO MEDICARE PART A & B Care Teams Preparation Supervisor Canning Relationship Specialty Start Date End Date Davi Rojas MD [address] [place], [place] [address] [address] [place] [phone] [email or web address] PCP - General Internal Medicine 10/04/20 Unknown, Unknown, 10/04/20 Cecilia De La Torre, RN [address] [place] [phone] [email or web address] Primary Infusion Nurse 02/01/23 Additional Source Comments The information contained in this document represents components of the legal health record. It is not the complete legal health record.[facility]
--- OUTSIDE RECORDS SUMMARY | 2025-03-15 16:38 | XMS_ITS | Encounter Summary ---
Author Organization [facility] Address [facility] [address] [place] [address] Phone Care Team Providers Care Regional Production Manager Name Role Phone aDvi Rojas MD Primary Care Provide r Unknown, Unknown Unavailable Unavailable Cecilia De La Torre RN Unavailable SOLO [email or web address] Encounter Details Date Type Department Care Team (Late st Contact Info) Description 11/15/2020 Procedure Pass [facility] Endoscopy Department [address] [place] [address] Social History Tobacco Use Types Packs/Day Years [...] Description 03/19/2025 10:40 AM EDT Office Visit [facility] Rheumatology [address], [address] [place] [address] John Gabriel DO [address] [place] [address] LUIS MANUEL@[email or web address] 03/20/2025 9:15 AM EDT Telemedicine [facility] 55 [facility], 5th [place] [address] Trice Castañeda MD [address] [place] [address] 4 [place] [address] [email or web address] documented as of this encounter Visit Diagnoses Not on filedocumented in this encounter Care Teams Regional Production Manager Relationship Specialty Start Date End Date Davi Rojas MD [address] [place] [phone] [email or web address] PCP - General Internal Medicine 10/04/20 Unknown, Unknown, 10/04/20 Cecilia De La Torre, RN [address] [place] [phone] [email or web address] Primary Infusion Nurse 02/01/23 documented as of this encounter Additional Source Comments The information contained in this document represents components of the legal health record. It is not the complete legal health record.[facility]
--- OUTSIDE RECORDS SUMMARY | 2025-03-15 16:38 | XMS_ITS | Encounter Summary ---
Author Organization [facility] Address [facility] [address] [place] [address] Phone Care Team Providers Care Artificial Pearl Maker Name Role Phone Davi Rojas MD Primary Care Provide r Unknown, Unknown Unavailable Unavailable Cecilia De La Torre RN Unavailable SOLO @[email or web address] Encounter Details Date Type Department Care Team (Late st Contact Info) Description 09/30/2021 Procedure Pass [address] [address] Social History Tobacco Use Types Packs/Day Years [...] Description 03/19/2025 10:40 AM EDT Office Visit [facility] Rheumatology [address], [address] [place] [address] John Gabriel DO 55 [place] [address] LUIS MANUEL@[email or web address] 03/20/2025 9:15 AM EDT Telemedicine [facility] 55 [facility], 5th [place] [address] Trice Castañeda MD 55 [facility] 4 [place] [address] [email or web address] documented as of this encounter Visit Diagnoses Not on filedocumented in this encounter Care Teams Artificial Pearl Maker Relationship Specialty Start Date End Date Davi Rojas MD [address] [place] [address] [place] [phone] [email or web address] PCP - General Internal Medicine 10/04/20 Unknown, Unknown, 10/04/20 Cecilia De La Torre, RN [address] [place] [phone] [email or web address] Primary Infusion Nurse 02/01/23 documented as of this encounter Additional Source Comments The information contained in this document represents components of the legal health record. It is not the complete legal health record.[facility]
--- OUTSIDE RECORDS SUMMARY | 2025-03-15 16:38 | XMS_ITS | Encounter Summary ---
Author Organization [facility] Address [facility] [address] [place] [address] Phone Care Team Providers Care Glue Jointer Operator Name Role Phone Davi Rojas MD Primary Care Provide r Unknown, Unknown Unavailable Unavailable Cecilia De La Torre RN Unavailable SOLO @[email or web address] Encounter Details Date Type Department Care Team (Late st Contact Info) Description 08/07/2022 Procedure Pass [facility] [address] [place] [address] Social History Tobacco Use Types Packs/Day Years [...] Description 03/19/2025 10:40 AM EDT Office Visit [facility] Rheumatology [address], [address] [place] [address] PeruJohn pollard DO 55 [place] [address] LUIS MANUEL@[email or web address] 03/20/2025 9:15 AM EDT Telemedicine [facility] 55 [facility], 5th [place] [address] Trice Castañeda MD [address] [place] [phone] [email or web address] documented as of this encounter Visit Diagnoses Not on filedocumented in this encounter Care Teams Glue Jointer Operator Relationship Specialty Start Date End Date Davi Rojas MD [address] [place] [phone] [email or web address] PCP - General Internal Medicine 10/04/20 Unknown, Unknown, 10/04/20 Cecilia De La Torre, RN [address] [place] [phone] [email or web address] Primary Infusion Nurse 02/01/23 documented as of this encounter Additional Source Comments The information contained in this document represents components of the legal health record. It is not the complete legal health record.[facility]
--- OUTSIDE RECORDS SUMMARY | 2025-03-15 16:38 | XMS_ITS | Encounter Summary ---
Author Organization [facility] Address [address] [place] [address] Phone Care Team Providers Care Director Medical Safety Name Role Phone Davi Rojas MD Primary Care Provide r Unknown, Unknown Unavailable Unavailable Cecilia De La Torre RN Unavailable SOLO @[facility] Encounter Details Date Type Department Care Team (Late st Contact Info) Description 04/30/2023 Procedure Pass [facility] Endoscopy Department [address] [place] [address] Social History Tobacco Use Types Packs/Day Years [...] Description 03/19/2025 10:40 AM EDT Office Visit [facility] Rheumatology [address], [address] [place] [phone] John Gabriel DO [address] [place] [address] LUIS MANUEL@[facility] 03/20/2025 9:15 AM EDT Telemedicine [facility] [address] [place] [address], 5th [place] [address] Trice aCstañeda MD [address] [place] [address] MASHA@[email or web address] documented as of this encounter Visit Diagnoses Not on filedocumented in this encounter Care Teams Director Medical Safety Relationship Specialty Start Date End Date Davi Rojas MD [address] [place] [address] [address] [place] [phone] [email or web address] PCP - General Internal Medicine 10/04/20 Unknown, Nano, 10/04/20 Cecilia De La Torre, RN [address] [place] [address] SOLO@[email or web address].[email or web address]. daisy Primary Infusion Nurse 02/01/23 documented as of this encounter Additional Source Comments The information contained in this document represents components of the legal health record. It is not the complete legal health record.[facility]
--- OUTSIDE RECORDS SUMMARY | 2025-03-15 16:38 | XMS_ITS | Encounter Summary ---
Author Organization [facility] Address [facility] [address] [place] [address] Phone Care Team Providers Care Merchandiser Seasonal Name Role Phone Davi Rojas MD Primary Care Provide r Unknown, Unknown Unavailable Unavailable Cecilia De La Torre RN Unavailable SOLO @[facility].[place].[facility] Encounter Details Date Type Department Care Team (Late st Contact Info) Description 08/11/2022 Procedure Pass [facility] Endoscopy Department [address] [place] [address] Social History Tobacco Use Types Packs/Day Years [...] Description 03/19/2025 10:40 AM EDT Office Visit [facility] Rheumatology [address], [address] [place] [address] PeruJohn pollard DO 55 [place] [address] LUIS MANUEL@[facility] 03/20/2025 9:15 AM EDT Telemedicine [facility] 55 [facility], 5th [place] [address] Trice Castañeda MD [address] [place] [address] MASHA@[facility] documented as of this encounter Visit Diagnoses Not on filedocumented in this encounter Care Teams Merchandiser Seasonal Relationship Specialty Start Date End Date Davi Rojas MD [address] [place] [phone] [email or web address] PCP - General Internal Medicine 10/04/20 Unknown, Unknown, 10/04/20 Cecilia De La Torre, RN [address] [place] [phone] SOLO@[facility].[place]. daisy Primary Infusion Nurse 02/01/23 documented as of this encounter Additional Source Comments The information contained in this document represents components of the legal health record. It is not the complete legal health record.[facility]
--- OUTSIDE RECORDS SUMMARY | 2025-03-15 16:38 | XMS_ITS | Encounter Summary ---
Author Organization [facility] Address [facility] [address] [place] [address] Phone Care Team Providers Care Document Control Assistant Name Role Phone Davi Rojas MD Primary Care Provide r Unknown, Unknown Unavailable Unavailable Cecilia De La Torre RN Unavailable SOLO @[facility] Encounter Details Date Type Department Care Team (Latest Contact Info) Description 11/27/2020 Transcribe Orders [address] [address] Jeanna Espinoza, CT 20 [place] [address] [email or web address] Pre-procedure lab exam (Primary Dx) Social History Tobacco Use Types [...] Description 03/19/2025 10:40 AM EDT Office Visit [facility] Rheumatology [address], [address] [place] [address] John Gabriel DO 55 [place] [address] LUIS MANUEL@[facility] 03/20/2025 9:15 AM EDT Telemedicine [facility] 55 [facility], 5th [place] [address] Trice Castañeda MD 55 [facility] 4 [place] [address] MASHA@[email or web address] documented as of this encounter Results * Creatinine/eGFR (11/29/2020 7:44 AM EDT) CREATININE 0.79 0.50 - 1.20 mg/dL [facility] EGFR 98 >59 mL/min/1.7 3m2 [facility] Comment:Estimated glomerular filtration rate calculated using the CKD-EPI equation. 11/29/2020 7:44 AM EDT 11/29/2020 7:48 AM EDT us Eugenie Carrasco MD LAB BLOOD ORDERABLES Allie l Result [facility] [address] [place] [address] documented in this encounter Visit Diagnoses Diagnosis Pre-procedure lab exam- Primary Pre-procedural laboratory examination documented in this encounter Care Teams Document Control Assistant Relationship Specialty Start Date End Date Davi Rojas MD [address] [place] [address] [address] [place] [phone] [email or web address] PCP - General Internal Medicine 10/04/20 Unknown, Unknown, 10/04/20 Cecilia De La Torre, RN [address] [place] [phone] SOLO@[facility]. daisy Primary Infusion Nurse 02/01/23 documented as of this encounter Additional Source Comments The information contained in this document represents components of the legal health record. It is not the complete legal health record.[facility]
--- OUTSIDE RECORDS SUMMARY | 2025-03-15 16:38 | XMS_ITS | Encounter Summary ---
Author Organization [employer] Address [address] [place] [address] 7t [place] [address] Care Team Providers Care Crowd Controller Name Role Phone Davi Rivers MD Primary Care Provide r Reason for Visit * Reason Onset Date Comments chart prep 03/14/2025 Encounter Details Date Type Department Care Team ([facility] st Contact Info) Description 03/14/2025 Telephone [facility] MEDICINE [address] [place] [address] Davi Rivers MD [address] [place] [address] chart prep Social History Tobacco Use Types Packs/Day Years [...] encounter Miscellaneous Notes * Telephone Encounter - Bonnie Schmidt [place] - 03/14/2025 12:54 PM EDT Chart Prep Labs: done Images: not applicable Referrals: not applicable Vaccines due: Covid, Flu, PCV20, RSV, and Zoster Screenings: pap smear, foot exam, and HIV screening Overdue care gaps: Glucose and PHQ-9 documented in this encounter Plan of Treatment Not on file documented as of this encounter Visit Diagnoses Not on filedocumented in this encounter Additional Health Concerns Assessment Noted Time PHQ-9 Depression Total Score: 0 01/18/20 24 1:09 PM EDT documented as of this encounter Care Teams Crowd Controller Relationship Specialty Start Date End Date Davi Rivers MD [address] [place] [address] PCP - General Internal Medicine 03/29/18 documented as of this encounter
--- OUTSIDE RECORDS SUMMARY | 2025-03-15 16:38 | XMS_ITS | Encounter Summary ---
Author Organization [facility] Address [facility] [address] [place] [address] Phone Care Team Providers Care Stonehand Name Role Phone Davi Rojas MD Primary Care Provide r Unknown, Unknown Unavailable Unavailable Cecilia De La Torre RN Unavailable SOLO @[facility].[facility] Encounter Details Date Type Department Care Team (Late st Contact Info) Description 12/12/2020 Procedure Pass [facility] Endoscopy Department [address] [place] [address] Social History Tobacco Use Types Packs/Day Years [...] Description 03/19/2025 10:40 AM EDT Office Visit [facility] Rheumatology [address], [address] [place] [address] John Gabriel DO 55 [place] [address] LUIS MANUEL@[facility] 03/20/2025 9:15 AM EDT Telemedicine [facility] 55 [facility], 5th [place] [address] Tirce Castañeda MD [address] [place] [address] 4 [place] [address] MASHA@[email or web address] documented as of this encounter Visit Diagnoses Not on filedocumented in this encounter Care Teams Stonehand Relationship Specialty Start Date End Date Davi Rojas MD [address] [place] [phone] [email or web address] PCP - General Internal Medicine 10/04/20 Unknown, Unknown, 10/04/20 Cecilia De La Torre, RN [address] [place] [phone] SOLO@[facility]. daisy Primary Infusion Nurse 02/01/23 documented as of this encounter Additional Source Comments The information contained in this document represents components of the legal health record. It is not the complete legal health record.[facility]
--- OUTSIDE RECORDS SUMMARY | 2025-03-15 16:38 | XMS_ITS | Encounter Summary ---
Author Organization [facility] Address [address] [place] [address] Phone Care Team Providers Care Coffee Farmer Name Role Phone Davi Rojas MD Primary Care Provide r Unknown, Unknown Unavailable Unavailable Cecilia De La Torre RN Unavailable SOLO @[facility].[facility] Encounter Details Date Type Department Care Team (Late st Contact Info) Description 08/25/2021 Procedure Pass [facility] [address] [place] [address] Social History Tobacco Use Types Packs/Day Years [...] Description 03/19/2025 10:40 AM EDT Office Visit [facility] Rheumatology [address], [address] [place] [address] John Gabriel DO 55 [place] [address] LUIS MANUEL@[facility] 03/20/2025 9:15 AM EDT Telemedicine [facility] 55 [facility], 5th [place] [address] Trice Castañeda MD 55 [facility] 4 [place] [address] MASHA@[facility] documented as of this encounter Visit Diagnoses Not on filedocumented in this encounter Care Teams Coffee Farmer Relationship Specialty Start Date End Date Davi Rojas MD [address] [place] [address] [place] [phone] [email or web address] [email or web address] PCP - General Internal Medicine 10/04/20 Unknown, Unknown, 10/04/20 Cecilia De La Torre, RN [address] [place] [phone] SOLO@[facility].[place]. daisy Primary Infusion Nurse 02/01/23 documented as of this encounter Additional Source Comments The information contained in this document represents components of the legal health record. It is not the complete legal health record.[facility]
--- OUTSIDE RECORDS SUMMARY | 2025-03-15 16:38 | XMS_ITS | Encounter Summary ---
Author Organization [facility] Address [address] [place] [address] Phone Care Team Providers Care Trolley Operator Name Role Phone Davi Rojas MD Primary Care Provide r Unknown, Unknown Unavailable Unavailable Cecilia De La Torre RN Unavailable SOLO @[facility].[facility] Encounter Details Date Type Department Care Team (Late st Contact Info) Description 05/07/2023 Procedure Pass [address] [address] Social History Tobacco Use Types Packs/Day Years [...] Description 03/19/2025 10:40 AM EDT Office Visit [facility] Rheumatology [address], [address] [place] [address] John Gabriel DO [address] [place] [address] LUIS MANUEL@[facility] 03/20/2025 9:15 AM EDT Telemedicine [facility] [address] [place] [address], 5th [place] [address] Trice Castañeda MD [address] [place] [address] MASHA@[facility] documented as of this encounter Visit Diagnoses Not on filedocumented in this encounter Care Teams Trolley Operator Relationship Specialty Start Date End Date Davi Rojas MD [address] [place] [address] [place] [phone] [email or web address] PCP - General Internal Medicine 10/04/20 Unknown, Nano, 10/04/20 Cecilia De La Torre, RN [address] [place] [phone] SOLO@[facility].[place]. daisy Primary Infusion Nurse 02/01/23 documented as of this encounter Additional Source Comments The information contained in this document represents components of the legal health record. It is not the complete legal health record.[facility]
--- OUTSIDE RECORDS SUMMARY | 2025-03-15 16:38 | XMS_ITS | Encounter Summary ---
Author Organization [facility] Address [address] [place] [address] Phone Care Team Providers Care Band Tumbler Name Role Phone Davi Rojas MD Primary Care Provide r Unknown, Unknown Unavailable Unavailable Cecilia De La Torre RN Unavailable SOLO @[facility] Encounter Details Date Type Department Care Team (Late st Contact Info) Description 08/24/2022 Procedure Pass [facility] Endoscopy Department [address] [place] [address] Social History Tobacco Use Types Packs/Day Years [...] PM EDT documented as of this encounter Functional Status * Calculated C-SSRS Risk Score (Lifetime/Recent) Answer Date of Assessment Author No Risk Indicated 08/27/2022 8:00 PM Soren Chan RN * [place] Suicide Severity Rating Scale (Screener/Recent Self-Report) Question Answer Date of Assessment Author 1. Wish to be (Past 1 Month) No 08/27/2022 8:00 PM Soren Chan Ch, RN 2. Non-Specific Active Suicidal Thoughts (Past 1 Month) No 08/27/2022 8:00 PM Soren Chan Ch, RN 6. Suicidal Behavior (Lifetime) No 08/27/2022 8:00 PM Soren Chan Ch, RN documented as of this encounter Plan of Treatment Upcoming Encounters Date Type Department Care Team (Late st Contact Info) Description 03/19/2025 10:40 AM EDT Office Visit [facility] Rheumatology [address], [address] [place] [address] John Gabriel DO 55 [place] [address] LUIS MANUEL@[email or web address] 03/20/2025 9:15 AM EDT Telemedicine [facility] 55 [facility], 5th [place] [address] Trice Castañeda MD [address] [place] [address] [address] MASHA@[facility] documented as of this encounter Visit Diagnoses Not on filedocumented in this encounter Care Teams Band Tumbler Relationship Specialty Start Date End Date Davi Rojas MD [address] [place] [address] [address] [place] [phone] [email or web address] PCP - General Internal Medicine 10/04/20 Unknown, Nano, 10/04/20 Cecilia De La Torre, BA [address] [place] [phone] SOLO@[email or web address]. daisy Primary Infusion Nurse 02/01/23 documented as of this encounter Additional Source Comments The information contained in this document represents components of the legal health record. It is not the complete legal health record.[facility]
--- OUTSIDE RECORDS SUMMARY | 2025-03-15 16:38 | XMS_ITS | Encounter Summary ---
Author Organization [facility] Address [facility] [address] [place] [address] Phone Care Team Providers Care Hand I Tube Bender Name Role Phone Davi Rojas MD Primary Care Provide r Unknown, Unknown Unavailable Unavailable Cecilia De La Torre RN Unavailable SOLO @[facility] Encounter Details Date Type Department Care Team (Late st Contact Info) Description 07/21/2022 Procedure Pass [address] [address] Social History Tobacco Use Types Packs/Day Years [...] Description 03/19/2025 10:40 AM EDT Office Visit [facility] Rheumatology [address], [address] [place] [address] John Gabriel DO 55 [place] [address] LUIS MANUEL@[facility] 03/20/2025 9:15 AM EDT Telemedicine [facility] 55 [facility], 5th [place] [address] Trice Castañeda MD 55 [facility] 4 [place] [address] MASHA@[facility] documented as of this encounter Visit Diagnoses Not on filedocumented in this encounter Care Teams Hand I Tube Bender Relationship Specialty Start Date End Date Davi Rojas MD [address] [place] [address] [place] [phone] [email or web address] PCP - General Internal Medicine 10/04/20 Unknown, Unknown, 10/04/20 Cecilia De La Torre, RN [address] [place] [phone] SOLO@[facility]. daisy Primary Infusion Nurse 02/01/23 documented as of this encounter Additional Source Comments The information contained in this document represents components of the legal health record. It is not the complete legal health record.[facility]
--- OUTSIDE RECORDS SUMMARY | 2025-03-15 16:38 | XMS_ITS | Encounter Summary ---
Author Organization [facility] Address [facility] [address] [place] [address] Phone Care Team Providers Care Auto Emissions Technician Name Role Phone Davi Rojas MD Primary Care Provide r Unknown, Unknown Unavailable Unavailable Cecilia De La Torre RN Unavailable SOLO @[facility].[place] Encounter Details Date Type Department Care Team (Late st Contact Info) Description 01/14/2021 Procedure Pass [address] [address] Social History Tobacco Use Types Packs/Day Years [...] Description 03/19/2025 10:40 AM EDT Office Visit [facility] Rheumatology [address], [address] [place] [address] John Gabriel DO 55 [place] [address] LUIS MANUEL@[facility] 03/20/2025 9:15 AM EDT Telemedicine [facility] 55 [facility], 5th [place] [address] Trice Castañeda MD [address] [address] MASHA@[email or web address] documented as of this encounter Visit Diagnoses Not on filedocumented in this encounter Care Teams Auto Emissions Technician Relationship Specialty Start Date End Date Davi Rojas MD [address] [place] [address] [address] [place] [phone] [email or web address] PCP - General Internal Medicine 10/04/20 Unknown, Unknown, 10/04/20 Cecilia De La Torre, RN [address] [place] [phone] SOLO@[email or web address].[email or web address] daisy Primary Infusion Nurse 02/01/23 documented as of this encounter Additional Source Comments The information contained in this document represents components of the legal health record. It is not the complete legal health record.[facility]
--- OUTSIDE RECORDS SUMMARY | 2025-03-15 16:38 | XMS_ITS | Encounter Summary ---
Author Organization [facility] Address [facility] [address] [facility] [address] [place] [address] Phone Care Team Providers Care Clip Bolter And Wrapper Name Role Phone Davi Rojas MD Primary Care Provide r Unknown, Unknown Unavailable Unavailable Cecilia De La Torre RN Unavailable SOLO @[facility] Encounter Details Date Type Department Care Team (Late st Contact Info) Description 10/31/2020 Telephone [facility] [address] [place] [address] Duong Perez MD 75 [facility] [place] [address] [email or web address]@[email or web address] Social History Tobacco Use Types Packs/Day Years [...] Description 03/19/2025 10:40 AM EDT Office Visit [facility] [place] [address], [address] [place] [address] John Gabriel DO 55 [place] [address] LUIS MANUEL@[facility] 03/20/2025 9:15 AM EDT Telemedicine [facility] 55 [facility], 5th [place] [address] Trice Castañeda MD 55 [facility] 4 [place] [address] MASHA@[facility] documented as of this encounter Visit Diagnoses Not on filedocumented in this encounter Care Teams Clip Bolter And Wrapper Relationship Specialty Start Date End Date Davi Rojas MD [address] [facility] [address] [place] [phone] [email or web address] PCP - General Internal Medicine 10/04/20 Unknown, Nano, 10/04/20 Cecilia De La Torre, RN [address] [place] [phone] SOLO@[facility].[place]. daisy Primary Infusion Nurse 02/01/23 documented as of this encounter Additional Source Comments The information contained in this document represents components of the legal health record. It is not the complete legal health record.[facility]
--- OUTSIDE RECORDS SUMMARY | 2025-03-15 16:38 | XMS_ITS | Encounter Summary ---
Author Organization [facility] Address [facility]ly [facility] [address] [place] [address] Phone Care Team Providers Care Email Marketing Intern Name Role Phone Davi Rojas MD Primary Care Provide r Unknown, Unknown Unavailable Unavailable Cecilia De La Torre RN Unavailable SOLO [email or web address] Encounter Details Date Type Department Care Team (Late st Contact Info) Description 09/23/2022 Procedure Pass [address] [address] Social History Tobacco Use Types Packs/Day Years [...] AM EDT Office Visit [facility] Rheumatology [address], [address] [place] [address] John Gabriel DO [address] [place] [address] LUIS [email or web address] 03/20/2025 9:15 AM EDT Telemedicine [facility] 55 [facility], 5th [place] [address] Trice Castañeda MD 55 [facility] 4 [place] [address] [email or web address] documented as of this encounter Visit Diagnoses Not on filedocumented in this encounter Care Teams Email Marketing Intern Relationship Specialty Start Date End Date Davi Rojas MD [address] [place] [address] [place] [phone] [email or web address] PCP - General Internal Medicine 10/04/20 Unknown, Unknown, 10/04/20 Cecilia De La Torre, RN [address] [place] [phone] [email or web address] Primary Infusion Nurse 02/01/23 documented as of this encounter Additional Source Comments The information contained in this document represents components of the legal health record. It is not the complete legal health record.[facility]
--- OUTSIDE RECORDS SUMMARY | 2025-03-15 16:38 | XMS_ITS | Encounter Summary ---
Author Organization [facility] Address [facility] [address] [place] [address] Phone Care Team Providers Care Australian Rules Footballer Name Role Phone Davi Rojas MD Primary Care Provide r Unknown, Unknown Unavailable Unavailable Cecilia De La Torre RN Unavailable SOLO [email or web address] Encounter Details Date Type Department Care Team (Late st Contact Info) Description 10/10/2021 Procedure Pass [address] [address] Social History Tobacco Use Types Packs/Day Years [...] 03/19/2025 10:40 AM EDT Office Visit [facility] Rheumatology [address], [address] [place] [address] John Gabriel DO 55 [place] [address] LUIS [email or web address] 03/20/2025 9:15 AM EDT Telemedicine [facility] [address] [facility], 5th [place] [address] Trice Castañeda MD 55 [facility] 4 [place] [address] [email or web address] documented as of this encounter Visit Diagnoses Not on filedocumented in this encounter Care Teams Australian Rules Footballer Relationship Specialty Start Date End Date Davi Rojas MD [address] [place] [address] [place] [phone] [email or web address] PCP - General Internal Medicine 10/04/20 Unknown, Unknown, 10/04/20 Cecilia De La Torre, RN [address] [place] [phone] [email or web address] Primary Infusion Nurse 02/01/23 documented as of this encounter Additional Source Comments The information contained in this document represents components of the legal health record. It is not the complete legal health record.[facility]
--- OUTSIDE RECORDS SUMMARY | 2025-03-15 16:38 | XMS_ITS | Encounter Summary ---
Author Organization [employer] Address [address] [place] [address] 7[address] [place] [address] Care Team Providers Care Family Coach Name Role Phone Davi Rivers MD Primary Care Provide r Encounter Details Date Type Department Care Team (Latest Contact Info) Description 03/15/2025 Travel Social History Tobacco Use Types Packs/Day [...] AM EDT documented as of this encounter Functional Status * Over the [...] [place] documented as of this encounter Plan of Treatment Not on file documented as of this encounter Visit Diagnoses Not on filedocumented in this encounter Additional Health Concerns Assessment Noted Time PHQ-9 Depression Total Score: 0 03/15/20 25 2:27 PM EDT documented as of this encounter Care Teams Family Coach Relationship Specialty Start Date End Date Davi Rivers MD [address] [place] [address] [place] [address] PCP - General Internal Medicine 03/29/18 documented as of this encounter
--- OUTSIDE RECORDS SUMMARY | 2025-03-15 16:38 | XMS_ITS | Encounter Summary ---
Author Organization [facility] Address [facility] [address] [place] [address] Phone Care Team Providers Care Meat Hostess Name Role Phone Davi Rojas MD Primary Care Provide r Unknown, Unknown Unavailable Unavailable Cecilia De La Torre RN Unavailable SOLO [email or web address] Encounter Details Date Type Department Care Team (Latest Contact Info) Description 10/24/2021 Transcribe Orders [facility] [address] [address] Tirso Cochran [email or web address] Pre-procedural laboratory examination (Primary Dx) Social History [...] Description 03/19/2025 10:40 AM EDT Office Visit [facility] Rheumatology [address], [address] [place] [address] John Gabriel DO 55 [place] [address] LUIS [email or web address] 03/20/2025 9:15 AM EDT Telemedicine [facility] 55 [facility], 5th [place] [address] Trice Castañeda MD 55 [facility] 4 [place] [address] [email or web address] Scheduled Orders Name Type Priority Associated Diagnoses Orde r Schedule Poct Creatinine Point of Care Testing Routine Pre-procedural laboratory examination Ordered: 10/24/2021 documented as of this encounter Visit Diagnoses Diagnosis Pre-procedural laboratory examination- Primary documented in this encounter Care Teams Meat Hostess Relationship Specialty Start Date End Date Davi Rojas MD [address] [facility] [address] [place] [phone] [email or web address] PCP - General Internal Medicine 10/04/20 Unknown, Unknown, 10/04/20 Cecilia De La Torre, RN [address] [place] [phone] [email or web address] Primary Infusion Nurse 02/01/23 documented as of this encounter Additional Source Comments The information contained in this document represents components of the legal health record. It is not the complete legal health record.[facility]
--- OUTSIDE RECORDS SUMMARY | 2025-03-15 16:38 | XMS_ITS | Encounter Summary ---
Author Organization [facility] Address [facility] [address] [place] [address] Phone Care Team Providers Care Salon Assistant Name Role Phone Davi Rojas MD Primary Care Provide r Unknown, Unknown Unavailable Unavailable Cecilia De La Torre RN Unavailable SOLO [email or web address] Encounter Details Date Type Department Care Team (Late st Contact Info) Description 10/31/2020 Procedure Pass [address] [address] Social History Tobacco Use Types Packs/Day Years [...] Description 03/19/2025 10:40 AM EDT Office Visit [facility] Rheumatology [address], [address] [place] [address] John Gabriel DO 55 [place] [address] LUIS [email or web address] 03/20/2025 9:15 AM EDT Telemedicine [facility] 55 [facility], 5th [place] [address] Trice Castañeda MD [address] [address] MASHA@[email or web address] documented as of this encounter Visit Diagnoses Not on filedocumented in this encounter Care Teams Salon Assistant Relationship Specialty Start Date End Date Davi Rojas MD [address] [place] [address] [address] [place] [phone] [email or web address] PCP - General Internal Medicine 10/04/20 Unknown, Unknown, 10/04/20 Cecilia De La Torre, RN [address] [place] [phone] [email or web address] Primary Infusion Nurse 02/01/23 documented as of this encounter Additional Source Comments The information contained in this document represents components of the legal health record. It is not the complete legal health record.[facility]
== END 2025-03-15 14:57 | disposition home or self-care (01) ==
LOC: HO.HHCX 14:56
PROVIDERS: PCP Internal Medicine; Visit Provider Internal Medicine
DX: M25.531 Pain in right wrist (principal); M25.532 Pain in left wrist
CPT/HCPCS: 73110

== ENCOUNTER → 2025-03-15 15:01 | Outpatient (BNV) | payer MEDICARE, BC, SELFPAY | PROVIDERS: PCP Internal Medicine; Visit Provider Radiology Diagnostic Radiology | DX: M11.232 Other chondrocalcinosis, left wrist (principal); M18.11 Unilateral primary osteoarthritis of first carpometacarpal joint, right hand | CPT/HCPCS: 73110 ==